=== PATIENT | female | born 1965 | race Caucasian/White ===

== ENCOUNTER → 2016-11-25 | Outpatient (CLI) | payer BC ==
[~2016-11-25] MED LIST: BUPRTAB PO; CETI10CA PO; CHOL1TAB42 PO; LORA-741 PO; PHEN1CAP PO; PYRI100T4 PO; RMCI IV
--- NOTE | 2016-11-25 13:10 | DIAGNOSTIC IMAGING REPORT ---
PAIN. RIGHT ARM UPPER EXTREMITY VENOUS DOPPLER HISTORY: Pain. Edema. R ARM PAIN/SWELLING Right COMPARISON STUDY: None. FINDINGS: The internal jugular vein is patent. There is normal flow within the subclavian vein. There is normal flow and compressibility within the left axillary, basilic, brachial, radial, ulnar, and visualized cephalic veins. IMPRESSION: No DVT within the upper extremity. Electronically signed by: Peewee Grier M.D. 11/25/2016 1:09 PM Dictated Date/Time: 11/25/2016 1:08 PM
== END | disposition home or self-care (01) ==
LOC: C.ULTRBC 12:24
PROVIDERS: ATTEND Internal Medicine Geriatric Medicine
DX: M79.601 Pain in right arm (principal); R60.0 Localized edema

== ENCOUNTER → 2016-11-28 | Outpatient (CLI) | payer BC ==
[2016-11-28 17:07] LABS: RHEUMATOID FACTOR < 10.0 U/mL (0-15); URIC ACID 3.6 mg/dl (2.6-7.2)
[2016-11-28 18:13] LABS: LYME DISEASE AB IGG NEG (NEG); LYME DISEASE AB IGM NEG (NEG)
[2016-12-02 15:44] LABS: CYCLIC CITRULLINATED PEPT IGG <16 UNITS (<20)
== END | disposition home or self-care (01) ==
LOC: C.LAB1850 15:59
PROVIDERS: ATTEND Internal Medicine Geriatric Medicine
DX: M25.50 Pain in unspecified joint (principal); D64.9 Anemia, unspecified; M85.80 Other specified disorders of bone density and structure, unspecified site; R63.5 Abnormal weight gain

== ENCOUNTER → 2016-12-12 | Outpatient (CLI) | payer BC ==
--- NOTE | 2016-12-12 14:51 | DIAGNOSTIC IMAGING REPORT ---
RIGHT WRIST MIN 3 VIEWS ROUTINE CLINICAL HISTORY: Right wrist swelling. COMPARISON: None. DISCUSSION: No acute fractures are visualized. There are no erosive or destructive changes. There is no evidence for soft tissue swelling. IMPRESSION: No acute fractures. No evidence of erosive disease. Electronically signed by: Randy Saeed M.D. 12/12/2016 2:49 PM Dictated Date/Time: 12/12/2016 2:49 PM
[2016-12-12 16:51] LABS: BASO % 0.4 %; BASO ABS # 0.03 K/uL (0-0.2); COMPLETE YES; EOS % 1.3 %; HEMATOCRIT 37.2 % (37-47); IG% 0.1 %; LYMPH % 45.6 %; MEAN CELL VOLUME 85.5 fL (80-100); MEAN CORPUSCULAR HEMOGLOBIN 28.3 pg (25-34); MEAN CORPUSCULAR HGB CONC 33.1 g/dl (32-36); MEAN PLATELET VOLUME 11.2 fL (7.4-10.4); MONO % 6.3 %; NEUT % 46.3 %; PLATELET COUNT 240 K/uL (130-400); RED BLOOD COUNT 4.35 M/uL (4.2-5.4); WHITE BLOOD COUNT 7.67 K/uL (4.8-10.8)
== END | disposition home or self-care (01) ==
LOC: C.RADBC 14:30
PROVIDERS: ATTEND Internal Medicine Geriatric Medicine
DX: R60.0 Localized edema (principal)

== ENCOUNTER → 2017-01-14 | Outpatient (CLI) | payer BC ==
[~2017-01-14] MED LIST changes: -PHEN1CAP PO; +PHEN30CA PO
--- NOTE | 2017-01-14 15:33 | DIAGNOSTIC IMAGING REPORT ---
LEFT FOOT 3 VIEWS CLINICAL HISTORY: Left foot pain and swelling. FINDINGS: 3 views of the left foot are obtained. No prior studies are available for comparison at the time of dictation. The skeletal structures appear osteopenic. No fracture is seen. Mild arthritic change is identified at the first metatarsophalangeal joint. The joint spaces of the foot are otherwise preserved. There are large dorsal and plantar calcaneal enthesophytes. No erosive change is suspected. Mild soft tissue edema is suggested in the foot. IMPRESSION: 1. Mild soft tissue swelling with no acute bony abnormality identified in the left foot. 2. Osteopenia with mild arthritic change and heel spurs as above. Electronically signed by: Aj Grigsby M.D. 01/14/2017 3:31 PM Dictated Date/Time: 01/14/2017 3:30 PM
--- NOTE | 2017-01-14 15:35 | DIAGNOSTIC IMAGING REPORT ---
RIGHT WRIST 4 VIEWS CLINICAL HISTORY: Right arm swelling. FINDINGS: 4 views of the right wrist are compared to study dated 12/12/2016. The skeletal structures are osteopenic. No fracture is seen. The joint spaces of the wrist appear maintained. No erosive disease is identified. The overlying soft tissues are normal as imaged. IMPRESSION: Osteopenia with no acute bony abnormality seen in the right wrist. There has been no significant change from 12/12/2016. Electronically signed by: Aj Grigsby M.D. 01/14/2017 3:32 PM Dictated Date/Time: 01/14/2017 3:32 PM
--- NOTE | 2017-01-14 15:38 | DIAGNOSTIC IMAGING REPORT ---
LEFT HAND MIN 3 VIEWS ROUTINE CLINICAL HISTORY: Arm edema. Pain. COMPARISON: None FINDINGS: Alignment of the left hand is anatomic. No fracture or suspicious lesion is identified. No erosions are identified. Minimal joint space narrowing and osteophytosis is noted within several articulations. Mild radiocarpal joint space narrowing is present. IMPRESSION: 1. No acute fracture. 2. No radiographic evidence of an erosive/inflammatory arthropathy. 3. Mild arthritis within several articulations of the left hand. Electronically signed by: Chago Cueto M.D. 01/14/2017 3:36 PM Dictated Date/Time: 01/14/2017 3:34 PM
--- NOTE | 2017-01-14 15:58 | DIAGNOSTIC IMAGING REPORT ---
RIGHT HAND 3 VIEWS HISTORY: Right hand pain. COMPARISON: None. FINDINGS: There is no fracture or dislocation. Soft tissues are unremarkable. The bones are slightly osteopenic. There appears be a tiny periarticular erosion at the head of the fifth metacarpal. Minimal degenerative changes at the DIP joints. IMPRESSION: 1. Tiny periarticular erosion at the head of the fifth metacarpal. 2. Minimal degenerative changes within the DIP joints. 3. The bones are slightly osteopenic. Electronically signed by: bAel Tripathi M.D. 01/14/2017 3:56 PM Dictated Date/Time: 01/14/2017 3:54 PM
--- NOTE | 2017-01-14 16:00 | DIAGNOSTIC IMAGING REPORT ---
RIGHT FOOT 3 VIEWS HISTORY: FOOT PAIN Right COMPARISON: None. FINDINGS: There is no fracture or dislocation. Soft tissue and bony bunion at the head of the first metatarsal. Mild osteoarthritis at the first MTP joint. No erosions identified. The bones are slightly osteopenic. Small plantar and posterior calcaneal spurs. IMPRESSION: 1. Soft tissue and bony bunion at the head of the first metatarsal. 2. Mild osteoarthritis at the first MTP joint. 3. The bones are slightly osteopenic. 4. No erosions identified. Electronically signed by: Abel Tripathi M.D. 01/14/2017 3:58 PM Dictated Date/Time: 01/14/2017 3:56 PM
[2017-01-14 16:58] LABS: URINE APPEARANCE CLEAR (CLEAR); URINE BILIRUBIN NEG (NEG); URINE COLOR YELLOW; URINE EPITHELIAL CELL AUTO 0-5 /lpf (0-5); URINE NITRITE NEG (NEG); UROBILINOGEN NEG (NEG)
[2017-01-14 17:14] LABS: MANUAL MICROSCOPIC REQUIRED? NO; REVIEW REQ? NO
[2017-01-19 02:28] LABS: ALBUMIN 4.4 G/DL (3.8-4.8); ANTI-CENTROMERE AB <1.0 NEG AI (<1.0 NEG); ANTI-SS-A <1.0 NEG AI (<1.0 NEG); ANTI-SS-B <1.0 NEG AI (<1.0 NEG); DNA ds CRITHIDIA NEGATIVE (NEGATIVE); GAMMA GLOBULIN 0.9 G/DL (0.8-1.7); Sm Antibody <1.0 NEG AI (<1.0 NEG); TOTAL PROTEIN 7.1 G/DL (6.2-8.3)
[2017-01-20 06:39] LABS: ANA TITER > OR = 1:1280 TITER (<1:40)
== END | disposition home or self-care (01) ==
LOC: C.RAD1850 14:55
PROVIDERS: ATTEND Internal Medicine Rheumatology
DX: M79.671 Pain in right foot (principal); M79.672 Pain in left foot; R60.0 Localized edema; M85.831 Other specified disorders of bone density and structure, right forearm; K50.90 Crohn's disease, unspecified, without complications; R89.4 Abnormal immunological findings in specimens from other organs, systems and tissues

== ENCOUNTER → 2017-01-19 | Outpatient (CLI) | payer BC ==
--- NOTE | 2017-01-19 15:21 | DIAGNOSTIC IMAGING REPORT ---
BONE SCAN OF THE FEET; WHOLE-BODY NUCLEAR BONE SCAN CLINICAL HISTORY: Feet pain. History of Crohn's disease. COMPARISON STUDY: Radiographs of the feet dated 01/14/2017. TECHNIQUE: Three hours following the IV administration of 27.2 mCi of technetium 99m MDP, whole body nuclear bone scan was performed in the anterior and posterior projections. Additional bone phase imaging of the feet was performed in multiple obliquities. FINDINGS: There is no abnormal osseous tracer deposition identified typical in appearance for bony metastatic disease. Typically degenerative uptake is identified in the hips, knees, ankles, and feet. The bone phase images of the feet show low level degenerative tracer activity at the ankles and throughout the intertarsal and tarsometatarsal joints. There is also degenerative activity since the right first metatarsophalangeal joint. There is expected excreted activity within the renal collecting system and bladder. IMPRESSION: 1. Foci of typically degenerative activity as detailed above. 2. Degenerative activity is seen within both feet and ankles. Electronically signed by: Aj Grigsby M.D. 01/19/2017 3:19 PM Dictated Date/Time: 01/19/2017 3:13 PM
== END | disposition home or self-care (01) ==
LOC: C.NUCL 11:02
PROVIDERS: ATTEND Internal Medicine Rheumatology
DX: K50.90 Crohn's disease, unspecified, without complications (principal); R89.4 Abnormal immunological findings in specimens from other organs, systems and tissues; M79.671 Pain in right foot; M79.672 Pain in left foot; R60.0 Localized edema

== ENCOUNTER → 2017-01-20 | Outpatient (CLI) | payer BC ==
[2017-01-20 18:17] LABS: HEMATOCRIT 36.3 % (37-47); MEAN CELL VOLUME 86.4 fL (80-100); MEAN CORPUSCULAR HEMOGLOBIN 27.9 pg (25-34); MEAN CORPUSCULAR HGB CONC 32.2 g/dl (32-36); MEAN PLATELET VOLUME 10.2 fL (7.4-10.4); PLATELET COUNT 254 K/uL (130-400); WHITE BLOOD COUNT 7.21 K/uL (4.8-10.8)
--- NOTE | 2017-01-20 18:44 | DIAGNOSTIC IMAGING REPORT ---
TWO VIEW CHEST CLINICAL HISTORY: Upper extremity edema. Weight gain. FINDINGS: PA and lateral chest radiographs are compared to study dated 12/14/2007 and correlated with chest CT dated 08/02/2015.. The cardiomediastinal silhouette is unremarkable. Chronic interstitial thickening is similar to previous. There is no airspace consolidation or pleural effusion. There is no pneumothorax. The skeletal structures appear osteopenic. The bony thorax appears intact. IMPRESSION: No active disease in the chest. Electronically signed by: Aj Grigsby M.D. 01/20/2017 6:42 PM Dictated Date/Time: 01/20/2017 6:41 PM
[2017-01-20 18:46] LABS: BASO ABS # 0.06 K/uL (0-0.2); BASOPHIL % 0.9 %; COMPLETE YES; EOSINOPHIL % 1.8 %; LYMPH ABS # 3.17 K/uL (1.2-3.4); LYMPHOCYTE % 43.9 %; NEUTROPHILS % 51.6 %
[2017-01-20 18:48] LABS: BLOOD UREA NITROGEN 15 mg/dl (7-18); BUN/CREATININE RATIO 13.4 (10-20); C-REACTIVE PROTEIN < 0.29 mg/dl (0-0.29); CALCIUM 8.6 mg/dl (8.5-10.1); CARBON DIOXIDE 27 mmol/L (21-32); CHLORIDE 106 mmol/L (98-107); GLUCOSE 92 mg/dl (70-99); POTASSIUM 3.9 mmol/L (3.5-5.1); SODIUM 140 mmol/L (136-145)
[2017-01-20 19:04] LABS: ALB/GLOB RATIO 1.1 (0.9-2); ALKALINE PHOSPHATASE 125 U/L (45-117); ALT/SGPT 25 U/L (12-78); AST/SGOT 16 U/L (15-37)
== END | disposition home or self-care (01) ==
LOC: C.LAB 17:39
PROVIDERS: ATTEND Registered Nurse
DX: K50.90 Crohn's disease, unspecified, without complications (principal); R60.0 Localized edema; R63.5 Abnormal weight gain

== ENCOUNTER → 2017-03-16 | Outpatient (CLI) | payer BC ==
[~2017-03-16] MED LIST changes: +GADAVIST IV PRN; +GLUCAGON FOR INJ 1 MG VIAL ONE; +NURSING VERBAL MED ORDER ONE
--- NOTE | 2017-03-16 10:33 | DIAGNOSTIC IMAGING REPORT ---
MR ENTEROGRAPHY ABD/PELVIS COMBO HISTORY: Upper abdominal pain. K50.90 Crohn's disease TECHNIQUE: Multiplanar multisequence MRI of the abdomen was performed both before and after the intravenous administration of contrast. 1 mg of glucagon was administered intramuscularly. COMPARISON STUDY: Abdomen and pelvis CT 12/14/2013. FINDINGS: There is evidence for prior right hemicolectomy. A few scattered T2 hyperintense lesions within the liver do not enhance and are consistent with cysts. Dominant lesion within the right hepatic lobe measures 9 mm. The kidneys, adrenal glands, spleen, and gallbladder are unremarkable. No retroperitoneal lymphadenopathy. There is a 3 mm cystic focus within the pancreatic head. Gastric fundus diverticulum. No bowel wall thickening or obstruction. No retroperitoneal lymphadenopathy. No abscess or fistula. The bladder, uterus, and adnexa are unremarkable. IMPRESSION: 1. Prior right hemicolectomy. 2. No bowel wall thickening or obstruction. No evidence for active inflammatory bowel disease. 3. A 3 mm cyst within the pancreatic head. This favors a small side branch intraductal papillary mucinous neoplasm or serous cystadenoma. Electronically signed by: Abel Tripathi M.D. 03/16/2017 10:31 AM Dictated Date/Time: 03/16/2017 10:24 AM
== END | disposition home or self-care (01) ==
LOC: C.MRI 07:41
PROVIDERS: ATTEND Registered Nurse
DX: K50.90 Crohn's disease, unspecified, without complications (principal); Z90.5 Acquired absence of kidney; K86.2 Cyst of pancreas

== ENCOUNTER → 2017-03-20 | Outpatient (CLI) | payer BC ==
[~2017-03-20] MED LIST changes: -GADAVIST IV PRN; -GLUCAGON FOR INJ 1 MG VIAL ONE; -NURSING VERBAL MED ORDER ONE
--- NOTE | 2017-03-20 11:31 | DIAGNOSTIC IMAGING REPORT ---
BILATERAL LOWER EXTREMITY VENOUS DOPPLER HISTORY: Pain. Edema. R60.0 Edema extremities-Bilateral venous dopplers with reflux te COMPARISON STUDY: None. FINDINGS: There is normal compressibility, flow, and augmentation within the bilateral lower extremity deep venous systems. IMPRESSION: No DVT within the right or left lower extremity. No evidence for venous insufficiency Electronically signed by: Peewee Grier M.D. 03/20/2017 11:30 AM Dictated Date/Time: 03/20/2017 11:28 AM
== END | disposition home or self-care (01) ==
LOC: C.ULTR 10:39
PROVIDERS: ATTEND Physician Assistant Medical
DX: R60.0 Localized edema (principal)

== ENCOUNTER → 2017-04-10 | Outpatient (CLI) | payer BC ==
[~2017-04-10] MED LIST changes: +PHEN1CAP PO; -PHEN30CA PO
[2017-04-13 15:08] LABS: QUANTIF TB AG-NIL <0.00 IU/ML; QUANTIFERON NIL 0.04 IU/ML
== END | disposition home or self-care (01) ==
LOC: C.LAB1850 15:34
PROVIDERS: ATTEND Internal Medicine
DX: K50.90 Crohn's disease, unspecified, without complications (principal); R53.83 Other fatigue; R63.5 Abnormal weight gain

== ENCOUNTER → 2017-04-16 | Outpatient (CLI) | payer BC ==
[~2017-04-16] MED LIST changes: -CHOL1TAB42 PO; -PHEN1CAP PO; -PYRI100T4 PO
--- NOTE | 2017-04-16 10:33 | DIAGNOSTIC IMAGING REPORT ---
ABD/PELVIS ORAL CONT ONLY CT DOSE: 982.62 mGycm HISTORY: Pain. Edema. R60.0 Edema extremities better look at lymph nodes in abd shruti and TECHNIQUE: Multiaxial CT images of the abdomen and pelvis were performed following the use of oral contrast. COMPARISON STUDY: 12/14/2013 FINDINGS: Lung bases remain clear. Liver continues to show numerous very small hyperdense nodules. Within limitations of an unenhanced scan these appear similar as compared to the prior study. Kidneys negative for calcification or hydronephrosis. Several small nodes in the region of the celiac axis and peripancreatic region are stable. Several small nodes in the mesentery also are stable. There is no evidence for new interval or progressive inocencio pathology. Bowel pattern within the abdomen and pelvis is nonobstructive. There is suggestion of mild wall edema of the sigmoid suggesting mild nonspecific colitis. No evidence for abscess collection or obstruction. Bladder is midline. No significant angle adenopathy. Mild degenerative change of the osseous structures throughout. IMPRESSION: 1. Mild nonspecific sigmoid colitis. 2. No evidence for abscess collection or obstruction. 3. Several indeterminate nodes of the abdomen unchanged compared to a prior study of 2013. 3. Micronodularity of the liver also unchanged . The above report was generated using voice recognition software. It may contain grammatical, syntax or spelling errors. Electronically signed by: Peewee Grier M.D. 04/16/2017 10:31 AM Dictated Date/Time: 04/16/2017 10:26 AM
== END | disposition home or self-care (01) ==
LOC: C.CTS 09:43
PROVIDERS: ATTEND Physician Assistant Medical
DX: R60.0 Localized edema (principal); K52.9 Noninfective gastroenteritis and colitis, unspecified

== ENCOUNTER → 2017-05-28 | Outpatient (CLI) | payer BC ==
[~2017-05-28] MED LIST changes: +CHOL1TAB42 PO; +PHEN1CAP PO; +PYRI100T4 PO
== END | disposition home or self-care (01) ==
LOC: C.LAB 13:58
PROVIDERS: ATTEND Internal Medicine Rheumatology
DX: K50.90 Crohn's disease, unspecified, without complications (principal); R89.4 Abnormal immunological findings in specimens from other organs, systems and tissues; E55.9 Vitamin D deficiency, unspecified; M35.1 Other overlap syndromes

== ENCOUNTER → 2017-08-12 | Outpatient (CLI) | payer BC ==
[~2017-08-12] MED LIST changes: -BUPRTAB PO; -PHEN1CAP PO; +PHEN30CA PO
[2017-08-12 18:06] LABS: CHOLESTEROL/HDL RATIO 4.6
[2017-08-19 02:40] LABS: ANTI-CENTROMERE AB <1.0 NEG AI (<1.0 NEG); ANTI-SS-A <1.0 NEG AI (<1.0 NEG); ANTI-SS-B <1.0 NEG AI (<1.0 NEG); DNA ds CRITHIDIA NEGATIVE (NEGATIVE); Sm Antibody <1.0 NEG AI (<1.0 NEG)
== END | disposition home or self-care (01) ==
LOC: C.LAB1850 16:13
PROVIDERS: ATTEND Physician Assistant Medical
DX: Z00.00 Encounter for general adult medical examination without abnormal findings (principal); M35.1 Other overlap syndromes

== ENCOUNTER → 2018-05-28 | Day surgery (SDC) | payer BC ==
[2018-05-25 13:05] VITALS: Ht 162.6 cm; Wt 86.4 kg
[~2018-05-28] VITALS: Ht 162.6 cm; Wt 86.4 kg
[~2018-05-28] MED LIST changes: +CYAN100020 PO; +LIDOCAINE HCL 2% 2 ML VIAL (20MG/ML) ONE; -LORA-741 PO; +MIDAZOLAM HCL 1 MG/ML 2ML VIAL ONE; +ONDANSETRON INJ 2 MG/ML 2 ML VIAL ONE; +PROPOFOL IV EMULSION 10 MG/ML 20 ML VIAL ONE; -PYRI100T4 PO; +SODIUM CHLORIDE 0.9% 500ML 500 ML IV ONE
--- NOTE | 2018-05-28 08:38 | Endo History and Physical ---
History & Physical Date of Service: May 28, 2018. Chief Complaint: Crohn's Disease Referring Physician: Mitch Paredes History of Present Illness 53 yo CF who presents for colonoscopy secondary to Crohn's disease. Past Medical History Gastrointestinal Disorder, Anxiety, Depression Past Surgical History Hx Cardiac Surgery: No Hx Internal Defibrillator: No Hx Pacemaker: No Hx Abdominal Surgery: Yes (, BOWEL RESECTION) Hx of Implantable Prosthesis: No Hx Post-Op Nausea and Vomiting: No Hx Cancer Surgery: No Hx Thoracic Surgery: No Hx Orthopedic: No Hx Urinary Tract Surgery: No Family History None Social History Smoking Status: Former Smoker Hx Substance Use: No Hx Alcohol Use: Yes (OCCASIONAL) Allergies Coded Allergies: Penicillins (Verified Allergy, Severe, RASH(?), 05/28/18) Iodinated Diagnostic Agents (Verified Allergy, Unknown, HIVES, RASH, WHEEZING, 05/28/18) Current Medications Reported Home Medications Medications Dose Route/Sig Max Daily Dose Days Date Category Vitamin B12 (Cyanocobalamin) 1,000 Mcg Tab 2 Tabs PO DAILY 05/25/18 Reported Phentermine Hcl 30 Mg Cap 1 Cap PO QAM 07/06/17 Reported Vitamin D (Cholecalciferol) 5,000 Unit Tab 1 Tab PO DAILY 07/06/17 Reported Zyrtec Allergy (Cetirizine Hcl) 10 Mg Cap 1 Cap PO QAM PRN 10/30/15 Reported Remicade (Infliximab) 100 Mg/10 Ml Inj 1 Dose IV Q6WK 10/30/15 Reported Vital Signs Weight (Kilograms): 86.36 Height (Feet): 5 Height (Inches): 4 Physical Exam General Appearance: WD/WN, no apparent distress Respiratory/Chest: Auscultation: breath sounds normal Cardiovascular: Heart Auscultation: RRR Abdomen: Bowel Sounds: normal Inspection & Palpation: soft, non-distended, no tenderness, guarding & rebound Assessment and Plan Assessment: 53 yo CF who presents for colonoscopy secondary to Crohn's disease. Plan: Proceed with colonoscopy.
--- NOTE | 2018-05-28 09:35 | Discharge Instructions ---
Endoscopy Patient Instructions Date / Procedure(s) Performed May 28, 2018. Colonoscopy Allergy Information Coded Allergies: Penicillins (Verified Allergy, Severe, RASH(?), 05/28/18) Iodinated Diagnostic Agents (Verified Allergy, Unknown, HIVES, RASH, WHEEZING, 05/28/18) Discharge Date / Findings May 28, 2018. Random colon biopsies History of partial colectomy with normal appearing anastomosis Medication Instructions OK to resume all medications today as prescribed Reported Home Medications Medications Dose Route/Sig Max Daily Dose Days Date Category Vitamin B12 (Cyanocobalamin) 1,000 Mcg Tab 2 Tabs PO DAILY 05/25/18 Reported Phentermine Hcl 30 Mg Cap 1 Cap PO QAM 07/06/17 Reported Vitamin D (Cholecalciferol) 5,000 Unit Tab 1 Tab PO DAILY 07/06/17 Reported Zyrtec Allergy (Cetirizine Hcl) 10 Mg Cap 1 Cap PO QAM PRN 10/30/15 Reported Remicade (Infliximab) 100 Mg/10 Ml Inj 1 Dose IV Q6WK 10/30/15 Reported Provider Instructions Activity Restrictions - No exercising or heavy lifting for 24 hours. - Do not drink alcohol the day of the procedure. - Do not drive a car or operate machinery until the day after the procedure. - Do not make any important decisions or sign important papers in 24 hours after the procedure. Following Day: - Return to full activity which may include returning to work/school. Diet Start your diet with liquids and light foods (jello, soup, juice, toast). Then eat your usual diet if not nauseated. Treatment For Common After Affects For mild abdominal pain, bloating, or excessive gas: - Rest - Eat lightly - Lie on right side Follow-Up Information Follow-up with Dr. Mitch Alva as scheduled Anesthesia Information What You Should Know You have had a procedure that required some medicine to reduce anxiety and discomfort. This treatment is called moderate sedation. After receiving the treatment, you may be sleepy, but you will be able to breathe on your own. The effects of the treatment may last for several hours. Follow these instructions along with Activity/Diet recommendations noted above: * Do NOT do anything where dizziness or clumsiness would be dangerous. * Rest quietly at home today, then you can be up and about tomorrow. * Have a responsible person stay with you the rest of today. * You may have had an I.V. today. If so, you may take the dressing off later today. Recommendations Call your doctor if: * Trouble breathing * Continuous vomiting for more than 24 hours * Temperature above 101 degrees * Severe abdominal pain or bloating * Pain not relieved by pain medicine ordered * There is increased drainage or redness from any incision * A large amount of rectal bleeding greater than 2-3 tablespoons. (If you had a polyp/s removed or have hemorrhoids, a small amount of blood - from the rectum is to be expected.) * You have any unanswered questions or concerns. IN THE EVENT OF A SERIOUS EMERGENCY, GO TO THE NEAREST EMERGENCY ROOM Your discharge instructions were prepared by provider Chucky Coelho. Patient Instructions Signature Page Kathleen Wright Patient (or Guardian) Signature/Date: I have read and understand the instructions given to me by my caregivers. Caregiver/RN/Doctor Signature/Date: The above-named patient and/or guardian has received patient instructions on this date. + Original Patient Signature Page (only) stays with chart. Please make copy for patient.
--- NOTE | 2018-05-28 09:44 | GI REPORT ---
Patient Name: Kathleen Wright Procedure Date: 05/28/2018 8:49 AM Date of : 1965 Admit Type: Outpatient Age: 53 Gender: Female Attending MD: Chucky Coelho DO Procedure: Colonoscopy Providers: Chucky Coelho DO Referring MD: Mitch Paredes Md Indications: Follow-up of Crohn's disease of the small bowel Medicines: Monitored Anesthesia Care Complications: No immediate complications. Estimated Blood Loss: Estimated blood loss: none. Procedure: Pre-Anesthesia Assessment: - Prior to the procedure, a History and Physical was performed, and patient medications and allergies were reviewed. The patient's tolerance of previous anesthesia was also reviewed. The risks and benefits of the procedure and the sedation options and risks were discussed with the patient. All questions were answered, and informed consent was obtained. Prior Anticoagulants: The patient has taken no previous anticoagulant or antiplatelet agents. ASA Grade Assessment: II - A patient with mild systemic disease. After reviewing the risks and benefits, the patient was deemed in satisfactory condition to undergo the procedure. After I obtained informed consent, the scope was passed under direct vision. Throughout the procedure, the patient's blood pressure, pulse, and oxygen saturations were monitored continuously. The scope was introduced through the anus and advanced to the terminal ileum. The colonoscopy was performed without difficulty. The patient tolerated the procedure well. The quality of the bowel preparation was good. The terminal ileum, ileocecal valve, appendiceal orifice, and rectum were photographed. Findings: The perianal and digital rectal examinations were normal. There was evidence of a prior end-to-side ileo-colonic anastomosis in the ascending colon. This was patent and was characterized by healthy appearing mucosa. The anastomosis was not traversed. Several random biopsies were obtained with cold forceps for histology in the entire colon. Impression: - Patent end-to-side ileo-colonic anastomosis, characterized by healthy appearing mucosa. - Several random biopsies were obtained in the entire colon. Recommendation: - Resume previous diet. - Continue present medications. - Repeat colonoscopy for surveillance based on pathology results. - Return to primary care physician as previously scheduled. Chucky Coelho DO 05/28/2018 9:44:11 AM This report has been signed electronically. Note Initiated On: 05/28/2018 8:49 AM Number of Addenda: 0 I attest to the content of the Intraoperative Record and orders documented therein, exceptions below {[id number]}
--- NOTE | 2018-05-28 09:52 | Anesthesiology Progress Note ---
Anesthesia Post Op Note Date & Time May 28, 2018 at 09:52 Vital Signs Pain Intensity: 0 Vital Signs Past 12 Hours Date Time Temp Pulse Resp B/P (MAP) Pulse Ox O2 Delivery O2 Flow Rate FiO2 05/28/18 09:50 75 18 129/82 (98) 99 Room Air 05/28/18 09:34 36.0 79 18 127/83 (98) 99 Room Air 05/28/18 08:42 36.4 92 18 128/85 (99) 98 Room Air Notes Mental Status: alert / awake / arousable, participated in evaluation Pt Amnestic to Procedure: Yes Nausea / Vomiting: adequately controlled Pain: adequately controlled Airway Patency, RR, SpO2: stable & adequate BP & HR: stable & adequate Hydration State: stable & adequate Anesthetic Complications: no major complications apparent
[2018-05-28 10:03] VITALS: BP 132/86; PULSE 76; O2SAT 99
== END | disposition home or self-care (01) ==
LOC: C.GI 08:17
PROVIDERS: ATTEND Internal Medicine
DX: K50.90 Crohn's disease, unspecified, without complications (principal); Z98.0 Intestinal bypass and anastomosis status; K21.9 Gastro-esophageal reflux disease without esophagitis; Z87.891 Personal history of nicotine dependence; Z88.0 Allergy status to penicillin; Z91.041 Radiographic dye allergy status

== ENCOUNTER 2023-04-01 15:21 | Inpatient (IN) ==
[2023-04-01 17:15] LABS: Hematocrit (blood only) 25.4 % (37.0-47.0); Mean Corpuscular Hemoglobin 16.3 pg (25.0-34.0); Mean Corpuscular Hgb Conc 27.6 g/dL (32.0-36.0); Mean Corpuscular Volume 59.2 fL (80.0-100.0); Mean Platelet Volume 9.9 fL (9.4-12.4); Platelet Count 479 K/uL (130-400); RDW Coefficient of Variation 20.8 % (11.5-14.5); RDW Standard Deviation 41.6 fL (36.4-46.3); Red Blood Count 4.29 M/uL (4.20-5.40); White Blood Count 10.09 K/ul (4.8-10.8)
[2023-04-01 17:20] LABS: Albumin Globulin Ratio 1.3 (0.9-2); Albumin Level 4.2 gm/dl (3.4-5.0); BUN Creatinine Ratio 6.3 (10-20); Bilirubin,Total 0.3 mg/dl (0.2-1.0); Est GFR (African American) 76.5 ml/min; Globulin 3.3 gm/dl (2.5-4.0); Potassium 2.9 mmol/L (3.5-5.1); Total Protein 7.5 gm/dl (6.0-8.3)
[2023-04-01] MEDS ORDERED: SODIUM CHLORIDE 0.9% 250 ML IV PRN (17:26)
[2023-04-01 17:35] LABS: Anisocytosis Present; Basophils # (auto) 0.04 K/uL (0-0.2); Basophils % (auto) 0.4 %; Eosinophils # (auto) 0.11 K/uL (0-0.50); Eosinophils % (auto) 1.1 %; Hypochromasia Present; Immature Granulocytes # (auto) 0.02 K/uL (0.01-0.20); Immature Granulocytes % (auto) 0.2 %; Lymphocytes # (auto) 2.73 K/uL (1.2-3.4); Lymphocytes % (auto) 27.1 %; Microcytosis Present; Monocytes # (auto) 0.79 K/uL (0.11-0.59); Monocytes % (auto) 7.8 %; Neutrophils % (auto) 63.4 %; Polychromasia 1+
--- NOTE | 2023-04-01 17:47 | Emergency Department Note ---
Impression & Plan Anemia, Diarrhea, HTN (hypertension) ED Provider Note NAME: ALEJANDRO HOLLOWAY AGE: 57 SEX: F : 1965 ARRIVES VIA: Walk-In INFORMANT: Patient ED PROVIDER(S): Vinay Martinez DO CHIEF COMPLAINT: low hemiglobin HPI: Patient is a 57-year-old female with a past medical history of anemia, anxiety, Crohn's who presents to the ER for diarrhea which has been present for the past month. It worsened over the past 1.5 weeks. She is going about 10 times a day. She has not noticed any blood in the stool. Was seen and had blood work done as an outpatient as she is feeling weak and was referred in with a hemoglobin of 6.5. Patient does follow with Dr. Coelho. She is on Remicade for ulcerative colitis. She denies any headache or change in vision. No chest pain or shortness of breath. No belly pain. No dysuria, urgency, or frequency. No other exacerbating remitting factors PAST MEDICAL HISTORY:See Below PAST SURGICAL HISTORY:See Below FAMILY HISTORY:See Below SOCIAL HISTORY:See Below HOME MEDICATIONS:See Below ALLERGIES:See Below VITALS:See Below PHYSICAL EXAMINATION: GENERAL: Sitting up in bed, alert, well appearing, well nourished, no distress, non-toxic EYE EXAM: normal conjunctiva. OROPHARYNX: no exudate, no erythema, lips, buccal mucosa, and tongue normal and mucous membranes are moist NECK: supple, no nuchal rigidity, no adenopathy, non-tender LUNGS: Clear to auscultation. Normal chest wall mechanics HEART: no murmurs, S1 normal and S2 normal ABDOMEN: abdomen soft, non-tender, normo-active bowel sounds, no masses, no rebound or guarding. RECTAL: Declined UPPER EXTREMITIES: upper extremities are grossly normal. LOWER EXTREMITIES: No pitting edema. NEURO EXAM: Normal sensorium, cranial nerves II-XII grossly intact, normal speech, no gross weakness of arms, no gross weakness of legs. MEDICAL DECISION MAKING: Patient is an 57-year-old female who presents ER for above-stated complaint. IV was established blood work was obtained. Labs show no significant leukocytosis. Mild anemia at 7 with the one earlier performed today at 6.5. Previous hemoglobin was 11-12. INR unremarkable. BMP with mild hypokalemia 2.9. LFTs bilirubin was unremarkable. Stool culture was obtained and was negative. C. difficile was negative. Stool was negative for blood. She has no belly pain. She was given IV fluids. She was typed and crossed given 2 units PRBCs. She was updated bedside discussed case with the hospitalist for further evaluation management treatment. Triage Nursing notes reviewed. Limited review of prior medical records performed Vital Signs: reviewed and remarkable for no significant abnormalities Differential diagnosis: Differential diagnosis includes etiologies such as diverticulitis, diverticulosis, AVM, coagulopathy, colitis, inflammatory bowel disease, malignancy, Kim-Gan tear, esophagitis, peptic ulcer disease, variceal bleed, gastritis, epistaxis, fissure, hemorrhoids, as well as others were entertained. ER treatment provided: See below Diagnostics interpreted by me include EKG and cardiac monitoring as listed below: -Cardiac Monitoring: An order was placed for continuous cardiac monitoring. The monitor shows a rate of 92 with sinus rhythm. -ECG: none -Laboratory studies:Interpreted by me as stated above in MDM and shown below. Imaging studies: Xrays: As interpreted by me:none CTs show: none Consultation(s): As described in MDM Procedures:none Critical Care: I have personally spent 31 minutes of critical care time in the direct management of this patient. This includes bedside care, interpretation of diagnostic studies, and testing, discussion with consultants, patient, and family members, and other required patient management activities. This 31 minutes is in excess of all separately billable procedures. Past Med/Surg History Medical History Allergic rhinitis inhaler prn Anxiety disorder Arthralgia of multiple sites Crohn's disease Depression Dermatitis on doxycycline daily Edema occasionally Hepatic cyst unaware Mixed connective tissue disease Obesity Osteopenia Pancreatic cyst unaware Pulmonary nodules unaware Seasonal allergies Vitamin B12 deficiency Vitamin D deficiency Surgical History History of bowel resection (~1993) [facility] [place] History of breast biopsy benign History of History of colonoscopy History of tonsillectomy History of wisdom tooth extraction Family History Mother Ovarian cancer Leukemia Breast cancer Uterine cancer Hypertension Father Congestive heart failure Stroke Uncle Myocardial infarction Other No family history of adverse response to anesthesia Denies family history of Prostate cancer Diabetes Lung cancer Colorectal cancer Social History Smoking Status: Former smoker Tobacco Type: Cigarettes Second Hand Exposure: No; Do You Dip or Chew Tobacco: No; Hx Alcohol Use: Yes Alcohol type: beer Alcohol Intake Frequency: Monthly or Less Hx Substance Use: No Preferred Language: Estonian Communication Ability: Effective Visual Impairment: Limited Hearing Ability: Normal Guide Excursion Required: No Beliefs That Will Affect Care: None marital status: Current Living Situation: Spouse Current Living Situation Comment: home with current occupational status: employed How many Children do You have: 1 Other Information That Helps Us Care for You: No Feels Safe at Home: Yes Safety Concerns: Feels Safe At This Time Childhood Exposure to Second-Hand Smoke: Yes caffeine: Yes Dental Care, Regularly: Yes Physical Activity Frequency: Daily Seatbelt Use: always Sunscreen Use: Yes Assistive Devices: Glasses Allergies Allergies Allergy/AdvReac Type Severity Reaction Status Date / Time Iodinated Contrast Media Allergy Intermediate HIVES, Verified 03/24/23 10:35 RASH, WHEEZING Penicillins Allergy Mild RASH(?) Verified 03/24/23 10:35 Home Meds Home Medications Medication Instructions Recorded Confirmed cetirizine 10 mg capsule (Zyrtec) 10 mg PO DAILY PRN Allergy Symptoms 07/11/19 04/01/23 phentermine 37.5 mg tablet 37.5 mg PO QAM 07/11/19 04/01/23 infliximab 100 mg intravenous See Rx Instructions IV .COMPLEX 08/09/19 04/01/23 solution (Remicade) cholecalciferol (vitamin D3) 125 5,000 units PO QAM 07/24/20 04/01/23 mcg (5,000 unit) capsule potassium chloride 10 mEq 10 meq PO .COMPLEX PRN when taking 03/12/21 04/01/23 capsule,extended release hctz albuterol sulfate 90 mcg/actuation 2 puff inhalation Q4 PRN Shortness 04/01/23 04/01/23 aerosol inhaler (ProAir HFA) Of Breath Or Wheezing doxycycline hyclate 100 mg tablet 100 mg PO QAM 04/01/23 04/01/23 Previous Rx's Medication Instructions Recorded hydrochlorothiazide 25 mg tablet 25 mg PO DAILY PRN edema #30 tabs 09/23/19 ketoconazole 2 % topical cream 1 applic topical BID #15 grams 09/18/21 cyanocobalamin (vitamin B-12) 1,000 mcg subcut .once monthly #1 08/21/22 1,000 mcg/mL injection solution mL Results & Data (ED) Vital Signs Vital Signs - 24 hr 04/01/23 15:25 04/01/23 16:41 04/01/23 16:42 Temperature 36.9 C Temperature Source Oral Pulse Rate 111 H 99 H Pulse Rate [Right Finger] 100 H Pulse Rhythm [Right Finger] Regular Pulse Strength [Right Finger] Normal Respiratory Rate 22 18 Respiratory Effort / Characteristics Non-Labored Respiratory Depth Normal Respiratory Pattern Regular Blood Pressure 151/85 H Blood Pressure [Right Arm] 152/85 H Blood Pressure Mean 107 Blood Pressure Mean [Right Arm] 107 Blood Pressure Position [Right Arm] Lying Pulse Oximetry 100 99 Oxygen Delivery Method Room Air Room Air Sepsis Recent Fever Within 48 Hours No Sepsis New/Unexplained Change in Mental Status N/A Sepsis Action Taken by Nursing No Action Required Laboratory Data 04/01/23 16:28 04/01/23 16:28 Lab Results 04/01/23 04/01/23 04/01/23 Range/Units 16:28 16:28 16:28 WBC 10.09 (4.8-10.8) K/ul RBC 4.29 (4.20-5.40) M/uL Hgb 7.0 L (12.0-16.0) g/dl Hct 25.4 L (37.0-47.0) % MCV 59.2 L (80.0-100.0) fL MCH 16.3 L (25.0-34.0) pg MCHC 27.6 L (32.0-36.0) g/dL RDW Std Deviation 41.6 (36.4-46.3) fL RDW Coeff of Owen 20.8 H (11.5-14.5) % Plt Count 479 H (130-400) K/uL MPV 9.9 (9.4-12.4) fL Immature Gran % (Auto) 0.2 % Neut % (Auto) 63.4 % Lymph % (Auto) 27.1 % [place] % (Auto) 7.8 % Eos % (Auto) 1.1 % Baso % (Auto) 0.4 % Reticulocyte % (Auto) 1.7 (0.5-2.0) % Neut # (Auto) 6.40 (1.40-6.50) K/uL Lymph # (Auto) 2.73 (1.2-3.4) K/uL [place] # (Auto) 0.79 H (0.11-0.59) K/uL Eos # (Auto) 0.11 (0-0.50) K/uL Baso # (Auto) 0.04 (0-0.2) K/uL Reticulocyte # 0.07 (0.02-0.10) 10^6/uL Immature Gran # (Auto) 0.02 (0.01-0.20) K/uL Polychromasia 1+ Hypochromasia Present Anisocytosis Present Microcytosis Present PT (9.0-12.0) Seconds INR (0.9-1.1) APTT (21.0-31.0) Seconds PTT Ratio Sodium 138 (136-145) mmol/L Potassium 2.9 L (3.5-5.1) mmol/L Chloride 108 H (98-107) mmol/L Carbon Dioxide 24 (21-32) mmol/L Anion Gap 6 (3-11) BUN 6 (6-23) mg/dl Creatinine 0.95 (0.6-1.2) mg/dl Est Cr Clr Drug Dosing 68.0 ml/min Est GFR ( Amer) 76.5 ml/min Est GFR (Non-Af Amer) 66.0 ml/min BUN/Creatinine Ratio 6.3 L (10-20) Glucose 92 (70-99(Fasting)) mg/dl Calcium 9.0 (8.6-10.3) mg/dl Magnesium 1.9 (1.7-2.4) mg/dl Iron 13 L (35-150) mcg/dl Unsaturated IBC 527 H (155-355) mcg/dl Transferrin 390 H (200-360) mg/dl Ferritin 6.9 L (8-388) ng/ml Total Bilirubin 0.3 (0.2-1.0) mg/dl AST 15 (13-39) U/L ALT 9 (7-52) U/L Alkaline Phosphatase 110 H (34-104) U/L Total Protein 7.5 (6.0-8.3) gm/dl Albumin 4.2 (3.4-5.0) gm/dl Globulin 3.3 (2.5-4.0) gm/dl Albumin/Globulin Ratio 1.3 (0.9-2) Lipase 17 (11-82) U/L Vitamin B12 (180-914) pg/ml Folate (>5.38) ng/ml SARS-CoV-2, RNA, NAAT (NEGATIVE) Blood Type O Positive Blood Type Recheck Antibody Screen NEGATIVE Crossmatch See Detail 04/01/23 04/01/23 04/01/23 Range/Units 16:28 16:28 17:43 WBC (4.8-10.8) K/ul RBC (4.20-5.40) M/uL Hgb (12.0-16.0) g/dl Hct (37.0-47.0) % MCV (80.0-100.0) fL MCH (25.0-34.0) pg MCHC (32.0-36.0) g/dL RDW Std Deviation (36.4-46.3) fL RDW Coeff of Owen (11.5-14.5) % Plt Count (130-400) K/uL MPV (9.4-12.4) fL Immature Gran % (Auto) % Neut % (Auto) % Lymph % (Auto) % [place] % (Auto) % Eos % (Auto) % Baso % (Auto) % Reticulocyte % (Auto) (0.5-2.0) % Neut # (Auto) (1.40-6.50) K/uL Lymph # (Auto) (1.2-3.4) K/uL [place] # (Auto) (0.11-0.59) K/uL Eos # (Auto) (0-0.50) K/uL Baso # (Auto) (0-0.2) K/uL Reticulocyte # (0.02-0.10) 10^6/uL Immature Gran # (Auto) (0.01-0.20) K/uL Polychromasia Hypochromasia Anisocytosis Microcytosis PT 10.8 (9.0-12.0) Seconds INR 1.0 (0.9-1.1) APTT 25.4 (21.0-31.0) Seconds PTT Ratio 0.9 Sodium (136-145) mmol/L Potassium (3.5-5.1) mmol/L Chloride (98-107) mmol/L Carbon Dioxide (21-32) mmol/L Anion Gap (3-11) BUN (6-23) mg/dl Creatinine (0.6-1.2) mg/dl Est Cr Clr Drug Dosing ml/min Est GFR ( Amer) ml/min Est GFR (Non-Af Amer) ml/min BUN/Creatinine Ratio (10-20) Glucose (70-99(Fasting)) mg/dl Calcium (8.6-10.3) mg/dl Magnesium (1.7-2.4) mg/dl Iron (35-150) mcg/dl Unsaturated IBC (155-355) mcg/dl Transferrin (200-360) mg/dl Ferritin (8-388) ng/ml Total Bilirubin (0.2-1.0) mg/dl AST (13-39) U/L ALT (7-52) U/L Alkaline Phosphatase (34-104) U/L Total Protein (6.0-8.3) gm/dl Albumin (3.4-5.0) gm/dl Globulin (2.5-4.0) gm/dl Albumin/Globulin Ratio (0.9-2) Lipase (11-82) U/L Vitamin B12 > 1500 H (180-914) pg/ml Folate 16.87 (>5.38) ng/ml SARS-CoV-2, RNA, NAAT NEGATIVE (NEGATIVE) Blood Type Blood Type Recheck Antibody Screen Crossmatch 04/01/23 Range/Units 18:01 WBC (4.8-10.8) K/ul RBC (4.20-5.40) M/uL Hgb (12.0-16.0) g/dl Hct (37.0-47.0) % MCV (80.0-100.0) fL MCH (25.0-34.0) pg MCHC (32.0-36.0) g/dL RDW Std Deviation (36.4-46.3) fL RDW Coeff of Owen (11.5-14.5) % Plt Count (130-400) K/uL MPV (9.4-12.4) fL Immature Gran % (Auto) % Neut % (Auto) % Lymph % (Auto) % [place] % (Auto) % Eos % (Auto) % Baso % (Auto) % Reticulocyte % (Auto) (0.5-2.0) % Neut # (Auto) (1.40-6.50) K/uL Lymph # (Auto) (1.2-3.4) K/uL [place] # (Auto) (0.11-0.59) K/uL Eos # (Auto) (0-0.50) K/uL Baso # (Auto) (0-0.2) K/uL Reticulocyte # (0.02-0.10) 10^6/uL Immature Gran # (Auto) (0.01-0.20) K/uL Polychromasia Hypochromasia Anisocytosis Microcytosis PT (9.0-12.0) Seconds INR (0.9-1.1) APTT (21.0-31.0) Seconds PTT Ratio Sodium (136-145) mmol/L Potassium (3.5-5.1) mmol/L Chloride (98-107) mmol/L Carbon Dioxide (21-32) mmol/L Anion Gap (3-11) BUN (6-23) mg/dl Creatinine (0.6-1.2) mg/dl Est Cr Clr Drug Dosing ml/min Est GFR ( Amer) ml/min Est GFR (Non-Af Amer) ml/min BUN/Creatinine Ratio (10-20) Glucose (70-99(Fasting)) mg/dl Calcium (8.6-10.3) mg/dl Magnesium (1.7-2.4) mg/dl Iron (35-150) mcg/dl Unsaturated IBC (155-355) mcg/dl Transferrin (200-360) mg/dl Ferritin (8-388) ng/ml Total Bilirubin (0.2-1.0) mg/dl AST (13-39) U/L ALT (7-52) U/L Alkaline Phosphatase (34-104) U/L Total Protein (6.0-8.3) gm/dl Albumin (3.4-5.0) gm/dl Globulin (2.5-4.0) gm/dl Albumin/Globulin Ratio (0.9-2) Lipase (11-82) U/L Vitamin B12 (180-914) pg/ml Folate (>5.38) ng/ml SARS-CoV-2, RNA, NAAT (NEGATIVE) Blood Type Blood Type Recheck O Positive Antibody Screen Crossmatch Administered Medications Pantoprazole Sodium 40 mg/ (Dextrose) 100 mls @ 20 mls/hr IV Q5H HAZEL Stop: 05/01/23 19:17 Last Admin: 04/01/23 21:21 Dose: 8 mg/hr, 20 mls/hr Documented By: KALYAN Discontinued Medications Potassium Chloride (K [place] / Wtr) 10 meq in 100 mls @ 100 mls/hr IV Q1H HAZEL Stop: 04/01/23 19:29 Last Infusion: 04/01/23 20:59 Dose: 0 mls/hr Documented By: Admin: 04/01/23 19:19 Dose: 100 mls/hr Documented By: Infusion: 04/01/23 19:18 Dose: 0 mls/hr Documented By: Admin: 04/01/23 18:12 Dose: 100 mls/hr Documented By: TONY Pantoprazole Sodium 80 mg/ (Dextrose) 120 mls @ 400 mls/hr IV NOW ONE Stop: 04/01/23 19:17 Last Infusion: 04/01/23 21:30 Dose: 0 mls/hr Documented By: Admin: 04/01/23 21:04 Dose: 400 mls/hr Documented By: KALYAN Discharge Plan Visit Data Chief Complaint: Abnormal Labs/Diagnostic Testing Stated Complaint: ABNORMAL LAB WORK,DOC REF ED Provider: Vinay Martinez Discharge Problem: Anemia, Diarrhea, HTN (hypertension) Discharge Instructions Interventions: ED Discharge Assessment Last Done: 04/01/23 20:20
--- NOTE | 2023-04-01 18:06 | History & Physical Report ---
Date of Service April 01, 2023 Assessment & Plan (1) Anemia: Plan: -Admit to med-tele -Currently stable -Has been having progressive diarrhea over the past month after having a food bolus -Noted to have outpatient Hgb of 6.5 today and sent to the ED for further evalu ation and treatment -Patient denies bloody BM and melena, fecal occult initially negative but nursing staff states "looked more positive" on further review -BUN WNL, iron studies are low, but does not appear to be low enough to explain her MCV in the 50's -ED consented for blood, ordered 2 units PRBC -Will add on reticulocyte count, LDH,peripheral smear, PT/INR, and aptt for further evaluation -Will start Protonix bolus and drip in case she is having an occult GI bleed -GI consult placed, will keep on clears until midnight then NPO except meds in preparation for possible EGD -Will monitor post-transfusion CBC then trend q6h following -BL SCD's for DVT PPX, hold chemical PPX in case of possible bleed -AM CBC, CMP, Mag, PT/INR (2) Hypokalemia: Plan: -Likely a combination of chronically low levels due to poor absorption, unable to take PO potassium due to difficulty swallowing, and recurrent diarrhea -Mag level at 1.9 -No acute ECG changes -Was initially ordered 2 bags of 10 meq IV KCL, will hold PO forms of KCL at this time as she cannot swallow the tabs and the powdered forms will likely cau se excessive GI upset -Will repeat a potassium level at midnight with first repeat CBC, then will continue to replete with IV for now -Continue to monitor on tele (3) Diarrhea: Plan: -Cannot rule out infectious etiology at this time, stool studies are in process -Likely at least partially due to restricted diet since her food bolus a month ago -Hold anti-diarrheals until infectious etiology is ruled out -IV fluids as needed, GI consult (4) Crohn's disease: Plan: -Has been stable on q6w Remicade infusions for 20 + years -Follow's with Dr. Coelho -Will hold any CT imaging at this time as she is without abd discomfort -Follow GI recs (5) Difficulty swallowing: Plan: -Will likely need EGD prior to discharge -Will keep on clears until midnight then NPO in case of EGD tomorrow Plan The patient was discussed with Dr. Jacob at the time of the admission History of Present Illness Chief Complaint: Abnormal outpatient labs; Hgb of 6.5 Primary Care Provider: IDANIA PCP Kathleen is a 57 year old female with a PMH significant for chrons ileitis s/p resection (on Q6W Remicade infusions), anemia, anxiety, depression, neuro- dermatitis, and chronic LE edema who presented to the [facility] ED on 04/01 at the recommendation of her PCP due to a Hgb of 6.5 on outpatient labs. In the ED the patient was initially tachycardic at 111 but vitals were otherwise stable. Labs in the ED were significant for a Hgb of 7.0, Hct of 25, MCV of 59, MCHC of 27, Platelet count of 479, potassium of 2.9, alk phos of 110. Prior to admission the patient was consented for blood and ordered 2 units of PRBC's. At the time of the exam the patient was sitting in bed in no acute distress. She states that she has had Chron's for 40 years, had approximately 3 feet of ileum removed approximately 20 years ago, and has been on q6w Remicade for years without complication. She was in the [facility] ED on 03/04 due to a food bolus. She was given sublingual ativan and nitroglycerine, as-well-as IV glucagon and was discharged home on a soft diet. She was initially early this month but it was not scheduled with Dr. Coelho and had to be rescheduled for mid April. Since her ED discharge she has been unable to eat solid food. She has been sticking with her soft diet and drinking plenty of liquids. She has been having ongoing issues with diarrhea over the past month. She was initially having a few soft- loose BM's daily. Over the past week and a half she has been having up to 10, loose-watery BM's. She denies any blood or melena in her stool at anytime and denies any recent nausea, vomiting, or abdominal pain. She has been using Imodium over the past week without improvement of her symptoms. She denies recent fever, chills, chest pain, cough, dysuria, hematuria, dysuria, LE swelling, and recent trauma. She states that she has a long hx of anemia but is unable to tolerate oral iron as it causes too much GI upset. She typically tries to eat foods rich in iron to supplement. She has been unable to consistently take her oral medications over the past few weeks due to them getting stuck while swallowing. Her son is getting engaged on Thursday and she states that she cannot miss it; unfortunately it is in [place] and she is diving up. Their home does have well water but she states that she only drinks bottled water. Please refer to Dr. Jacob's attestation for any changes to the treatment plan Allergies Allergy/AdvReac Type Severity Reaction Status Date / Time Iodinated Contrast Media Allergy Intermediate HIVES, Verified 03/24/23 10:35 RASH, WHEEZING Penicillins Allergy Mild RASH(?) Verified 03/24/23 10:35 Home Medications Medication Instructions Recorded Confirmed Type cetirizine 10 mg capsule (Zyrtec) 10 mg PO DAILY PRN Allergy Symptoms 07/11/19 04/01/23 History phentermine 37.5 mg tablet 37.5 mg PO QAM 07/11/19 04/01/23 History infliximab 100 mg intravenous See Rx Instructions IV .COMPLEX 08/09/19 04/01/23 History solution (Remicade) hydrochlorothiazide 25 mg tablet 25 mg PO DAILY PRN edema #30 tabs 09/23/19 04/01/23 Rx cholecalciferol (vitamin D3) 125 5,000 units PO QAM 07/24/20 04/01/23 History mcg (5,000 unit) capsule potassium chloride 10 mEq 10 meq PO .COMPLEX PRN when taking 03/12/21 04/01/23 History capsule,extended release hctz ketoconazole 2 % topical cream 1 applic topical BID #15 grams 09/18/21 04/01/23 Rx cyanocobalamin (vitamin B-12) 1,000 mcg subcut .once monthly #1 08/21/22 04/01/23 Rx 1,000 mcg/mL injection solution mL albuterol sulfate 90 mcg/actuation 2 puff inhalation Q4 PRN Shortness 04/01/23 04/01/23 History aerosol inhaler (ProAir HFA) Of Breath Or Wheezing doxycycline hyclate 100 mg tablet 100 mg PO QAM 04/01/23 04/01/23 History Past Med/Surg History Medical History Allergic rhinitis inhaler prn Anxiety disorder Arthralgia of multiple sites Crohn's disease Depression Dermatitis on doxycycline daily Edema occasionally Hepatic cyst unaware Mixed connective tissue disease Obesity Osteopenia Pancreatic cyst unaware Pulmonary nodules unaware Seasonal allergies Vitamin B12 deficiency Vitamin D deficiency Surgical History History of bowel resection (~1993) [facility] [place] History of breast biopsy benign History of History of colonoscopy History of tonsillectomy History of wisdom tooth extraction Family History Mother Ovarian cancer Leukemia Breast cancer Uterine cancer Hypertension Father Congestive heart failure Stroke Uncle Myocardial infarction Other No family history of adverse response to anesthesia Denies family history of Prostate cancer Diabetes Lung cancer Colorectal cancer Social History Smoking Status: Former smoker Tobacco Type: Cigarettes Second Hand Exposure: No; Do You Dip or Chew Tobacco: No; Hx Alcohol Use: Yes Alcohol type: beer Alcohol Intake Frequency: Monthly or Less Hx Substance Use: No Preferred Language: Thai Communication Ability: Effective Visual Impairment: Limited Hearing Ability: Normal Motor Tune Up Specialist Required: No Beliefs That Will Affect Care: None marital status: Current Living Situation: Spouse Current Living Situation Comment: home with current occupational status: employed How many Children do You have: 1 Other Information That Helps Us Care for You: No Feels Safe at Home: Yes Safety Concerns: Feels Safe At This Time Childhood Exposure to Second-Hand Smoke: Yes caffeine: Yes Dental Care, Regularly: Yes Physical Activity Frequency: Daily Seatbelt Use: always Sunscreen Use: Yes Assistive Devices: Glasses Physical Exam Physical Exam: Physical Exam: General: In no acute distress, stated age, well-nourished, non-toxic appearin g HEENT: Normocephalic, atraumatic, no scleral icterus, pupils around round, symmetrical, and reactive to light, moist mucus membranes, trachea midline, no thyromegaly Chest/Pulm: No respiratory distress, symmetrical chest expansion, clear breath sounds throughout Cardiac: RRR, no murmurs noted Abdomen: Negative for ascites and bruising, hyperactive bowel sounds, soft, non-tender to palpation throughout Musculoskeletal: Symmetrical and without signs of acute trauma, upper and lower extremities with full ROM, no atrophy, spasticity, or flaccidity Extremities: Radial, dorsalis pedis, and posterior tibial pulses are intact and symmetrical, no edema noted in the BL LE's Skin: Warm, dry, no rashes , lesions, or scars noted Neuro: Alert and oriented to person, place, month, year, and president, no focal defects, no tremors noted Psych: No acute distress, calm and cooperative during the exam Results & Data Results & Data Vital Signs (Past 12 Hours) Vital Signs Temp Pulse Pulse Resp BP BP Pulse Ox 04/01/23 16:42 99 H 04/01/23 16:41 100 H 18 152/85 H 99 04/01/23 15:25 36.9 C 111 H 22 151/85 H 100 O2 Del Method 04/01/23 16:42 04/01/23 16:41 Room Air 04/01/23 15:25 Room Air Laboratory Results Abnormal lab results 04/01/23 04/01/23 04/01/23 Range/Units 16:28 16:28 16:28 Hgb 7.0 L (12.0-16.0) g/dl Hct 25.4 L (37.0-47.0) % MCV 59.2 L (80.0-100.0) fL MCH 16.3 L (25.0-34.0) pg MCHC 27.6 L (32.0-36.0) g/dL RDW Coeff of Owen 20.8 H (11.5-14.5) % Plt Count 479 H (130-400) K/uL [place] # (Auto) 0.79 H (0.11-0.59) K/uL Potassium 2.9 L (3.5-5.1) mmol/L Chloride 108 H (98-107) mmol/L BUN/Creatinine Ratio 6.3 L (10-20) Iron 13 L (35-150) mcg/dl Unsaturated IBC 527 H (155-355) mcg/dl Transferrin 390 H (200-360) mg/dl Ferritin 6.9 L (8-388) ng/ml Alkaline Phosphatase 110 H (34-104) U/L Vitamin B12 (180-914) pg/ml Crossmatch See Detail 04/01/23 Range/Units 16:28 Hgb (12.0-16.0) g/dl Hct (37.0-47.0) % MCV (80.0-100.0) fL MCH (25.0-34.0) pg MCHC (32.0-36.0) g/dL RDW Coeff of Owen (11.5-14.5) % Plt Count (130-400) K/uL [place] # (Auto) (0.11-0.59) K/uL Potassium (3.5-5.1) mmol/L Chloride (98-107) mmol/L BUN/Creatinine Ratio (10-20) Iron (35-150) mcg/dl Unsaturated IBC (155-355) mcg/dl Transferrin (200-360) mg/dl Ferritin (8-388) ng/ml Alkaline Phosphatase (34-104) U/L Vitamin B12 > 1500 H (180-914) pg/ml Crossmatch Code Status & VTE Plan Code Status Full code VTE Prophylaxis Plan VTE Prophylaxis will be ordered: Yes Supervising Physician Co-Signing Physician Notes I personally saw and examined the patient. I verified all hunt points and agree with Ye Jenkins PA-C with the following exceptions and/or additions: 57 year old female presents to the ER with abnormal outpatient labs with hemoglobin 6.5. She reports diarrhea but no melena or hematochezia since food bolus 1 month ago. Not yet had follow up EGD from this. She reports history of iron deficiency anemia although struggles to take iron tablets for this. O/E A&Ox3, HS RRR, no murmurs, Chest CTAB, Abdo SNT, BS normal A/P Iron deficiency anemia - Low suspicion of very acute etiology given lack of symptoms, transfuse 1 unit and repeat Hgb. Aim Hgb > 7. Pantoprazole IV boluys and drip. NPO after midnight. Consult GI. She is certainly iron deficienct although MCV very low with actually detectable iron therefore will also get peripheral smear and will need close follow up of this. Hypokalemia - suspect from diarrhea, suspect will need colonoscopy but will await GI consult PG Care Time/CCT Total # of Minutes Spent Total Time Spent with Patient: Total time spent is greater than 50% in coordination of care (as documented) at patient's floor/unit and/or counseling patient: C[place] [address] INT INP/OBS CARE MIN Patient Type Established Medical Decision Making High Complexity Diagnoses Anemia D64.9 Hypokalemia E87.6 Diarrhea R19.7 Crohn's disease K50.90 Difficulty swallowing R13.10
[2023-04-01] MEDS: POTASSIUM CHLORIDE / WTR 10 MEQ/100 ML PLCT IV SCH ×2 (18:12→19:19)
[2023-04-01] MEDS ORDERED: PANTOPRAZOLE BOLUS/DRIP 1 EACH IV STA (18:45)
[2023-04-01 18:52] LABS: Vitamin B12 > 1500 pg/ml (180-914)
[2023-04-01 18:59] LABS: Ferritin 6.9 ng/ml (8-388)
[2023-04-01] MEDS ORDERED: PANTOprazole 80 MG in DEXTROSE 5% 100 ML IV ONE (19:00)
[2023-04-01 19:01] LABS: Magnesium 1.9 mg/dl (1.7-2.4)
[2023-04-01 19:07] LABS: Partial Thromboplastin Ratio 0.9; Partial Thromboplastin Time 25.4 Seconds (21.0-31.0); Prothrombin Time 10.8 Seconds (9.0-12.0)
[2023-04-01 20:12] LABS: Adenovirus F 40/41 PCR Not Detected (NotDetected); Astrovirus PCR Not Detected (NotDetected); Campylobacter PCR Not Detected (NotDetected); Cryptosporidium PCR Not Detected (NotDetected); Cyclospora cayetanensis PCR Not Detected (NotDetected); Entamoeba histolytica PCR Not Detected (NotDetected); Enteroaggregative E.coli(EAEC) Not Detected (NotDetected); Enteropathogenic E.coli (EPEC) Not Detected (NotDetected); Enterotoxigenic E.coli (ETEC) Not Detected (NotDetected); Giardia lamblia PCR Not Detected (NotDetected); Norovirus GI/GII PCR Not Detected (NotDetected); Plesiomonas shigelloides PCR Not Detected (NotDetected); Rotavirus A PCR Not Detected (NotDetected); Salmonella PCR Not Detected (NotDetected); Sapovirus PCR Not Detected (NotDetected); Shiga-like Toxin E.coli (STEC) Not Detected (NotDetected); Shigella/Enteroinvasive E.coli Not Detected (NotDetected); Vibrio cholerae PCR Not Detected (NotDetected); Vibrio species PCR Not Detected (NotDetected); Yersinia enterocolitica PCR Not Detected (NotDetected)
[2023-04-01 20:28] LABS: Reticulocyte % 1.7 % (0.5-2.0); Reticulocytes # 0.07 10^6/uL (0.02-0.10)
[2023-04-01] MEDS ORDERED: ACETAMINOPHEN 325 MG TAB PO PRN (20:50)
[2023-04-01] MEDS ORDERED: ALBUTEROL HFA 8 GM INHALER INH PRN (20:50)
[2023-04-01] MEDS: PANTOprazole 40 MG in DEXTROSE 5% 100 ML IV SCH (21:21)
[2023-04-02] MEDS: PANTOprazole 40 MG in DEXTROSE 5% 100 ML IV SCH ×5 (02:54→22:42)
[2023-04-02] MEDS: CHOLECALCIFEROL 5,000 UNITS 125 MCG TAB PO SCH (07:48)
[2023-04-02 09:01] LABS: Albumin Globulin Ratio 1.3 (0.9-2); Albumin Level 3.4 gm/dl (3.4-5.0); BUN Creatinine Ratio 3.4 (10-20); Bilirubin,Total 0.4 mg/dl (0.2-1.0); Calcium 8.1 mg/dl (8.6-10.3); Creatinine Clr Calc Pharmacy 72.8 ml/min; Est GFR (African American) 82.8 ml/min; Est GFR (Non-African American) 71.4 ml/min; Globulin 2.7 gm/dl (2.5-4.0); Magnesium 1.7 mg/dl (1.7-2.4); Potassium 3.2 mmol/L (3.5-5.1); Total Protein 6.1 gm/dl (6.0-8.3)
[2023-04-02 09:12] LABS: Prothrombin Time 11.3 Seconds (9.0-12.0)
[2023-04-02 09:18] LABS: Basophils # (auto) 0.04 K/uL (0-0.2); Basophils % (auto) 0.5 %; Eosinophils # (auto) 0.14 K/uL (0-0.50); Eosinophils % (auto) 1.8 %; Hematocrit (blood only) 24.6 % (37.0-47.0); Hemoglobin 7.2 g/dl (12.0-16.0); Immature Granulocytes # (auto) 0.02 K/uL (0.01-0.20); Immature Granulocytes % (auto) 0.3 %; Lymphocytes # (auto) 2.43 K/uL (1.2-3.4); Mean Corpuscular Hemoglobin 17.9 pg (25.0-34.0); Mean Corpuscular Hgb Conc 29.3 g/dL (32.0-36.0); Mean Platelet Volume 10.1 fL (9.4-12.4); Monocytes # (auto) 0.75 K/uL (0.11-0.59); Monocytes % (auto) 9.6 %; Neutrophils # (auto) 4.46 K/uL (1.40-6.50); Neutrophils % (auto) 56.8 %; Platelet Count 389 K/uL (130-400); Polychromasia 1+; RDW Coefficient of Variation 22.8 % (11.5-14.5); RDW Standard Deviation 47.8 fL (36.4-46.3); Red Blood Count 4.03 M/uL (4.20-5.40); Schistocytes 1+; White Blood Count 7.84 K/ul (4.8-10.8)
--- NOTE | 2023-04-02 10:03 | Gastrointestinal Consultation ---
Date of Consultation April 02, 2023 Assessment & Plan (1) Diarrhea: Stool PCR negative. -Stool calprotectin already ordered as outpatient, but this will take up to 2 weeks to return -Obtain CRP -Obtain C diff testing -Advised colonoscopy for 04/03/23. See anemia plan for further details. (2) Difficulty swallowing: -Advise Protonix 40 mg IV BID while inpatient -EGD advised for 04/03/23 (3) Anemia: -Clear liquids today -NPO after midnight -EGD & colonoscopy advised for 04/03/23, however it appears patient is wanting to leave the hospital prior to that. If she remains, we will proceed with EGD/colon tomorrow. Supervising Physician Co-Signing Physician Notes Agree with JUNIOR Diaz as above Abd: Soft, NT, ND, +BS Continue current therapy and supportive care EGD and colonoscopy in AM History of Present Illness Reason for Consultation: "Hx Crohn's, diarrhea, hgb of 6.5, dysphagia" Attending Physician: Abraham Hill History of Present Illness Patient is a 57 yo female with a history of Crohn's ileitis s/p resection who contacted the outpatient GI clinic on 04/01/23 with complaints of increased diarrhea over the past month. She estimated 10-15 episodes daily. No rectal bleeding. No abdominal pain. She is on Remicade 10 mg/kg q 6 weeks. Last colonoscopy in March 2021 demonstrated an inflammatory polyp but was otherwise unremarkable and without active IBD. She notes compliance with infusions. She notes that she has also had 1 month of dysphagia for which she was seen in the ED. She was scheduled for an outpatient EGD for further evaluation of this. She is taking Doxycycline daily. In response to her triage call to the outpatient clinic yesterday, she was sent for labs & stool studies. H/H was noted to be 6.5/ 23.6. She was advised to go to the ED for acute evaluation where she was subsequently admitted. Stool PCR ordered as an outpatient has resulted and was negative. Her H/H has only increased to 7.2/24.6 despite 2 units PRBCs. The patient reports she feels "fine" and wants to leave the hospital today because she has things to do. Allergies Allergy/AdvReac Type Severity Reaction Status Date / Time Iodinated Contrast Media Allergy Intermediate HIVES, Verified 03/24/23 10:35 RASH, WHEEZING Penicillins Allergy Mild RASH(?) Verified 03/24/23 10:35 Home Medications Medication Instructions Recorded Confirmed Type cetirizine 10 mg capsule (Zyrtec) 10 mg PO DAILY PRN Allergy Symptoms 07/11/19 04/01/23 History phentermine 37.5 mg tablet 37.5 mg PO QAM 07/11/19 04/01/23 History infliximab 100 mg intravenous See Rx Instructions IV .COMPLEX 08/09/19 04/01/23 History solution (Remicade) hydrochlorothiazide 25 mg tablet 25 mg PO DAILY PRN edema #30 tabs 09/23/19 04/01/23 Rx cholecalciferol (vitamin D3) 125 5,000 units PO QAM 07/24/20 04/01/23 History mcg (5,000 unit) capsule potassium chloride 10 mEq 10 meq PO .COMPLEX PRN when taking 03/12/21 04/01/23 History capsule,extended release hctz ketoconazole 2 % topical cream 1 applic topical BID #15 grams 09/18/21 04/01/23 Rx cyanocobalamin (vitamin B-12) 1,000 mcg subcut .once monthly #1 08/21/22 04/01/23 Rx 1,000 mcg/mL injection solution mL albuterol sulfate 90 mcg/actuation 2 puff inhalation Q4 PRN Shortness 04/01/23 04/01/23 History aerosol inhaler (ProAir HFA) Of Breath Or Wheezing doxycycline hyclate 100 mg tablet 100 mg PO QAM 04/01/23 04/01/23 History Patient History Medical History Allergic rhinitis inhaler prn Anxiety disorder Arthralgia of multiple sites Crohn's disease Depression Dermatitis on doxycycline daily Edema occasionally Hepatic cyst unaware Mixed connective tissue disease Obesity Osteopenia Pancreatic cyst unaware Pulmonary nodules unaware Seasonal allergies Vitamin B12 deficiency Vitamin D deficiency Surgical History History of bowel resection (~1993) [facility] [place] History of breast biopsy benign History of History of colonoscopy History of tonsillectomy History of wisdom tooth extraction Family History Mother Ovarian cancer Leukemia Breast cancer Uterine cancer Hypertension Father Congestive heart failure Stroke Uncle Myocardial infarction Other No family history of adverse response to anesthesia Denies family history of Prostate cancer Diabetes Lung cancer Colorectal cancer Social History Smoking Status: Former smoker Tobacco Type: Cigarettes Second Hand Exposure: No; Do You Dip or Chew Tobacco: No; Hx Alcohol Use: Yes Alcohol type: beer Alcohol Intake Frequency: Monthly or Less Hx Substance Use: No Preferred Language: Macanese Communication Ability: Effective Visual Impairment: Limited Hearing Ability: Normal Airline Security Representative Required: No Beliefs That Will Affect Care: None marital status: Current Living Situation: Spouse Current Living Situation Comment: home with current occupational status: employed How many Children do You have: 1 Other Information That Helps Us Care for You: No Feels Safe at Home: Yes Safety Concerns: Feels Safe At This Time Childhood Exposure to Second-Hand Smoke: Yes caffeine: Yes Dental Care, Regularly: Yes Physical Activity Frequency: Daily Seatbelt Use: always Sunscreen Use: Yes Assistive Devices: None Review of Systems Constitutional: no fever and no chills Respiratory: no cough and no dyspnea Cardiovascular: no chest pain Gastrointestinal: + diarrhea/loose stools; no abdominal pain, no blood in stools and no melena Psychiatric: no problem reported Hematologic / Lymphatic: no unexplained weight loss Physical Exam Constitutional: well developed Respiratory: normal respiratory effort Cardiovascular: Rate/Rhythm: regular rate Gastrointestinal (Abdomen): normal bowel sounds, soft, nontender, no hepatosplenomegaly Musculoskeletal: Head/Neck/Chest: normocephalic Psychiatric: Orientation: alert and oriented x 3 Results & Data Vital Signs (Past 12 Hours) Vital Signs Temp Pulse Pulse Resp BP Pulse Ox O2 Del Method 04/02/23 07:36 36.8 C 87 16 98 Room Air 04/02/23 05:12 36.8 C 89 20 131/78 97 Room Air 04/02/23 00:45 92 H 04/01/23 23:59 36.9 C 95 H 20 177/88 H 95 Room Air PG Care Time/CCT Total # of Minutes Spent Total Time Spent with Patient: Total time spent is greater than 50% in coordination of care (as documented) at patient's floor/unit and/or counseling patient: Coding Level of Care Code 69977 IN/OBS CONSULT LVL 4,60M Diagnoses Diarrhea R19.7 Difficulty swallowing R13.10 Anemia D64.9
[2023-04-02 10:33] LABS: C Reactive Protein 0.57 mg/dl (0-0.5)
[2023-04-02] MEDS: LAVAGE SOLUTION 4000ML PO SCH (18:47)
--- NOTE | 2023-04-02 23:06 | Hospitalist Progress Note ---
Date of Service April 02, 2023 Assessment & Plan (1) Anemia: Plan: -Admit to med-tele -Currently stable -Has been having progressive diarrhea over the past month after having a food bolus -Noted to have outpatient Hgb of 6.5 today and sent to the ED for further evalu ation and treatment -Patient denies bloody BM and melena, fecal occult initially negative but nursing staff states "looked more positive" on further review -BUN WNL, iron studies are low, but does not appear to be low enough to explain her MCV in the 50's -ED consented for blood, ordered 2 units PRBC -Will add on reticulocyte count, LDH,peripheral smear, PT/INR, and aptt for further evaluation -Will start Protonix bolus and drip in case she is having an occult GI bleed -GI consult placed, scopes planned in AM -Will monitor post-transfusion CBC then trend q6h following -BL SCD's for DVT PPX, hold chemical PPX in case of possible bleed (2) Hypokalemia: Plan: -Likely a combination of chronically low levels due to poor absorption, unable to take PO potassium due to difficulty swallowing, and recurrent diarrhea -Mag level at 1.9 -No acute ECG changes -Was initially ordered 2 bags of 10 meq IV KCL, will hold PO forms of KCL at this time as she cannot swallow the tabs and the powdered forms will likely cause excessive GI upset -Continue to monitor on tele (3) Diarrhea: Plan: -Cannot rule out infectious etiology at this time, stool studies are in process -Likely at least partially due to restricted diet since her food bolus a month ago -Hold anti-diarrheals until infectious etiology is ruled out -IV fluids as needed, GI consult (4) Crohn's disease: Plan: -Has been stable on q6w Remicade infusions for 20 + years -Follow's with Dr. Coelho -Will hold any CT imaging at this time as she is without abd discomfort -Follow GI recs (5) Difficulty swallowing: Plan: -Will likely need EGD prior to discharge -Will keep on clears until midnight then NPO in case of EGD tomorrow Admission and Anticipated Discharge Date Admission Date: April 01, 2023 Subjective 57 yo female reports no new symptoms. Review of Systems Review of Systems: All systems reviewed & are unremarkable except as noted in HPI & below Physical Exam Physical Exam: General: In no acute distress, stated age, well-nourished, non-toxic appearing HEENT: Normocephalic, atraumatic, no scleral icterus, pupils around round, symmetrical, and reactive to light, moist mucus membranes, trachea midline, no thyromegaly Chest/Pulm: No respiratory distress, symmetrical chest expansion, clear breath sounds throughout Cardiac: RRR, no murmurs noted Abdomen: Negative for ascites and bruising, hyperactive bowel sounds, soft, non-tender to palpation throughout Musculoskeletal: Symmetrical and without signs of acute trauma, upper and lower extremities with full ROM, no atrophy, spasticity, or flaccidity Extremities: Radial, dorsalis pedis, and posterior tibial pulses are intact and symmetrical, no edema noted in the BL LE's Skin: Warm, dry, no rashes , lesions, or scars noted Neuro: Alert and oriented to person, place, month, year, and president, no focal defects, no tremors noted Psych: No acute distress, calm and cooperative during the exam Results & Data Results & Data Vital Signs (Past 12 Hours) Vital Signs Temp Pulse Pulse Resp BP BP Pulse Ox 04/02/23 20:50 04/02/23 19:17 37.3 C 88 18 145/76 H 100 04/02/23 17:00 84 04/02/23 14:46 36.8 C 82 16 144/80 H 99 04/02/23 11:42 36.7 C 87 16 139/85 99 Pulse Ox O2 Del Method O2 Del Method 04/02/23 20:50 100 Room Air 04/02/23 19:17 Room Air 04/02/23 17:00 04/02/23 14:46 Room Air 04/02/23 11:42 Room Air PG Care Time/CCT Total # of Minutes Spent Total Time Spent with Patient: Total time spent is greater than 50% in coordination of care (as documented) at patient's floor/unit and/or counseling patient: Coding Level of Care Code 04956 SUB INP/OBS CARE 2/35MIN Diagnoses Anemia D64.9 Hypokalemia E87.6 Diarrhea R19.7 Crohn's disease K50.90 Difficulty swallowing R13.10
[2023-04-03] MEDS: LAVAGE SOLUTION 4000ML PO SCH (03:04)
[2023-04-03] MEDS: PANTOprazole 40 MG in DEXTROSE 5% 100 ML IV SCH ×2 (04:16→12:44)
[2023-04-03 07:42] LABS: Basophils # (auto) 0.03 K/uL (0-0.2); Basophils % (auto) 0.4 %; Eosinophils # (auto) 0.11 K/uL (0-0.50); Eosinophils % (auto) 1.5 %; Hemoglobin 7.5 g/dl (12.0-16.0); Immature Granulocytes # (auto) 0.02 K/uL (0.01-0.20); Immature Granulocytes % (auto) 0.3 %; Lymphocytes # (auto) 2.36 K/uL (1.2-3.4); Lymphocytes % (auto) 32.3 %; Mean Corpuscular Hemoglobin 18.1 pg (25.0-34.0); Mean Corpuscular Volume 60.4 fL (80.0-100.0); Monocytes # (auto) 0.91 K/uL (0.11-0.59); Monocytes % (auto) 12.4 %; Neutrophils # (auto) 3.88 K/uL (1.40-6.50); Neutrophils % (auto) 53.1 %; RDW Standard Deviation 46.4 fL (36.4-46.3); Red Blood Count 4.14 M/uL (4.20-5.40); White Blood Count 7.31 K/ul (4.8-10.8)
[2023-04-03 07:55] LABS: Mean Platelet Volume 10.1 fL (9.4-12.4); Platelet Count 396 K/uL (130-400)
[2023-04-03 07:59] LABS: Albumin Globulin Ratio 1.2 (0.9-2); Albumin Level 3.5 gm/dl (3.4-5.0); BUN Creatinine Ratio 3.4 (10-20); Bilirubin,Total 0.3 mg/dl (0.2-1.0); Calcium 8.4 mg/dl (8.6-10.3); Creatinine Clr Calc Pharmacy 74.6 ml/min; Est GFR (African American) 85.1 ml/min; Est GFR (Non-African American) 73.4 ml/min; Magnesium 1.7 mg/dl (1.7-2.4); Potassium 3.1 mmol/L (3.5-5.1); Total Protein 6.5 gm/dl (6.0-8.3)
[2023-04-03 08:14] LABS: Anisocytosis Present; Hypochromasia Present; Microcytosis Present; Polychromasia 2+
--- NOTE | 2023-04-03 09:09 | History & Physical Bridge Note ---
Date of Service April 03, 2023 History & Physical Bridge Note I have examined the patient, reviewed the History & Physical and in the interval since the performance of the History & Physical I have noted the following changes of clinical significance: no changes noted. She notes she tolerated her prep well. She notes clear liquid stools. H/H today is 7.5/25.0. Keep NPO & proceed with EGD & colonoscopy today. Supervising Physician Co-Signing Physician Notes Agree with JUNIOR Diaz as above Abd: Soft, NT, ND, +BS Proceed with EGD and colonoscopy now
--- NOTE | 2023-04-03 09:21 | Anesthesiology Consultation ---
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 Meliton Champion Case, DO Height/Weight Height: 5 ft 6 in Weight: 78.7 kg Allergies Allergy/AdvReac Type Severity Reaction Status Date / Time Iodinated Contrast Media Allergy Intermediate HIVES, Verified 03/24/23 10:35 RASH, WHEEZING Penicillins Allergy Mild RASH(?) Verified 03/24/23 10:35 Medications Home Medications Medication Instructions Recorded Confirmed Last Taken cetirizine 10 mg capsule (Zyrtec) 10 mg PO DAILY PRN Allergy Symptoms 07/11/19 04/01/23 Unknown phentermine 37.5 mg tablet 37.5 mg PO QAM 07/11/19 04/01/23 03/13/21 infliximab 100 mg intravenous See Rx Instructions IV .COMPLEX 08/09/19 04/01/23 02/08/21 solution (Remicade) hydrochlorothiazide 25 mg tablet 25 mg PO DAILY PRN edema #30 tabs 09/23/19 04/01/23 03/10/21 cholecalciferol (vitamin D3) 125 5,000 units PO QAM 07/24/20 04/01/23 03/13/21 mcg (5,000 unit) capsule potassium chloride 10 mEq 10 meq PO .COMPLEX PRN when taking 03/12/21 04/01/23 03/10/21 capsule,extended release hctz ketoconazole 2 % topical cream 1 applic topical BID #15 grams 09/18/21 04/01/23 Unknown cyanocobalamin (vitamin B-12) 1,000 mcg subcut .once monthly #1 08/21/22 04/01/23 Unknown 1,000 mcg/mL injection solution mL albuterol sulfate 90 mcg/actuation 2 puff inhalation Q4 PRN Shortness 04/01/23 04/01/23 Unknown aerosol inhaler (ProAir HFA) Of Breath Or Wheezing doxycycline hyclate 100 mg tablet 100 mg PO QAM 04/01/23 04/01/23 Unknown Active Medications Generic Name Dose Route Start Last Admin Trade Name Freq PRN Reason Stop Dose Admin Pantoprazole Sodium 40 mg/ 100 mls @ 20 mls/hr 04/01/23 19:18 04/03/23 04:16 Dextrose IV 05/01/23 19:17 8 mg/hr Q5H HAZEL 20 mls/hr Administration 8 MG/HR Vitamin D 5,000 units 04/02/23 09:00 04/02/23 07:48 Cholecalciferol 5,000 Units 125 Mcg Tab PO 05/02/23 08:59 Not Given QAM HAZEL NPO Date Last Intake of Fluids: 04/03/23 Time Last Intake of Fluids: 07:30 Date Last Intake of Solids: 04/01/23 Time Last Intake of Solids: 08:00 Past Medical History Medical History (Updated 04/03/23 @ 09:22 by Westley Berry MD) Allergic rhinitis inhaler prn Anxiety disorder Arthralgia of multiple sites Crohn's disease Depression Dermatitis on doxycycline daily Edema occasionally Encounter for pre-operative examination Hepatic cyst unaware Mixed connective tissue disease Obesity Osteopenia Pancreatic cyst unaware Pulmonary nodules unaware Seasonal allergies Vitamin B12 deficiency Vitamin D deficiency Exercise / Class Metabolic Activity 1 > 8 Run/Swim/Ski/Tennis Past Family History Family History Mother Ovarian cancer Leukemia Breast cancer Uterine cancer Hypertension Father Congestive heart failure Stroke Uncle Myocardial infarction Other No family history of adverse response to anesthesia Denies family history of Prostate cancer Diabetes Lung cancer Colorectal cancer Past Surgical History Surgical History History of bowel resection (~1993) [facility] [place] History of breast biopsy benign History of History of colonoscopy History of tonsillectomy History of wisdom tooth extraction Past Anesthesia History No Hx of Anesthesia Complications and No Family Hx of Anesthesia Complications History of PONV No Hx of PONV and No Hx of Motion Sickness Social History Smoking Status: Former smoker Do You Dip or Chew Tobacco: No Hx Alcohol Use: Yes Alcohol type: beer alcohol intake frequency: a few times a month Hx Substance Use: No substance use type: does not use Physical Exam Vital Signs Last Vital Signs Temp 37.2 C 04/03/23 08:49 Pulse 84 04/03/23 08:49 Resp 16 04/03/23 08:49 BP 120/86 04/03/23 08:49 Pulse Ox 97 04/03/23 08:49 O2 Del Method Room Air 04/03/23 08:49 Constitutional no acute distress ENMT Mouth: + dental restorations; no chipped teeth and no loose teeth Thyromental Distance: > or= 3.5 Finger Breadths Mallampati Class: II Neck normal visual inspection and trachea midline; neck extension not limited Respiratory normal respiratory effort; no respiratory distress Auscultation: lungs clear to auscultation bilaterally; no crackles, no rhonchi and no wheezes Cardiovascular Rate/Rhythm: regular rate and regular rhythm Heart Sounds: no gallop, no murmur and no cardiac rub Musculoskeletal Head/Neck/Chest: full ROM of neck Neurologic moves all extremities and awake Psychiatric Orientation: alert and oriented x 3 Testing Laboratory Results 04/03/23 06:58 04/03/23 06:58 PT 11.3 Seconds (9.0-12.0) 04/02/23 07:47 INR 1.0 (0.9-1.1) 04/02/23 07:47 APTT 25.4 Seconds (21.0-31.0) 04/01/23 16:28 Blood Type O Positive 04/01/23 16:28 Antibody Screen NEGATIVE 04/01/23 16:28
[2023-04-03] MEDS ORDERED: PROPOFOL IV EMULSION 10 MG/ML 20 ML VIAL IV ONE ×2 (10:04→10:51)
[2023-04-03] MEDS ORDERED: LIDOCAINE 2% 2 ML VIAL/AMP(20MG/ML) INFIL ONE ×2 (10:04→10:51)
--- NOTE | 2023-04-03 11:00 | GI REPORT ---
Patient Name: Kathleen Wright Procedure Date: 04/03/2023 10:27 AM Date of : 1965 Admit Type: Inpatient Age: 57 Gender: Female Attending MD: Chucky Coelho DO, Procedure: Upper GI endoscopy Providers: Chucky Coelho DO Referring MD: Abraham Hill MD Indications: Dysphagia Medicines: Monitored Anesthesia Care Complications: No immediate complications. Estimated Blood Loss: Estimated blood loss: none. Procedure: Pre-Anesthesia Assessment: - Prior to the procedure, a History and Physical was performed, and patient medications and allergies were reviewed. The patient's tolerance of previous anesthesia was also reviewed. The risks and benefits of the procedure and the sedation options and risks were discussed with the patient. All questions were answered, and informed consent was obtained. Prior Anticoagulants: The patient has taken no anticoagulant or antiplatelet agents. ASA Grade Assessment: III - A patient with severe systemic disease. After reviewing the risks and benefits, the patient was deemed in satisfactory condition to undergo the procedure. After obtaining informed consent, the endoscope was passed under direct vision. Throughout the procedure, the patient's blood pressure, pulse, and oxygen saturations were monitored continuously. The Endoscope was introduced through the mouth, and advanced to the second part of duodenum. The upper GI endoscopy was accomplished without difficulty. The patient tolerated the procedure well. Findings: Multiple benign-appearing, intrinsic moderate stenoses were found. The narrowest stenosis measured 1.3 cm (inner diameter). The stenoses were traversed. A guidewire was placed and the scope was withdrawn. Dilation was performed with a Savary dilator with mild resistance at 51 Fr. The dilation site was examined following endoscope reinsertion and showed moderate improvement in luminal narrowing. The entire examined stomach was normal. The examined duodenum was normal. Impression: - Benign-appearing esophageal stenoses. Dilated. - Normal stomach. - Normal examined duodenum. - No specimens collected. Recommendation: - Return patient to [facility] for [facility] care. - Advance diet as tolerated. - Use Protonix (pantoprazole) 40 mg PO BID. - Repeat upper endoscopy PRN for retreatment. Chucky Coelho DO 04/03/2023 10:59:50 AM This report has been signed electronically. Note Initiated On: 04/03/2023 10:27 AM Number of Addenda: 0 I attest to the content of the Intraoperative Record and orders documented therein, exceptions below {[id number]}
--- NOTE | 2023-04-03 11:05 | GI REPORT ---
Patient Name: Kathleen Wright Procedure Date: 04/03/2023 10:26 AM Date of : 1965 Admit Type: Inpatient Age: 57 Gender: Female Attending MD: Chucky Coelho DO, Procedure: Colonoscopy Providers: Chucky Coelho DO Referring MD: Abraham Hill M.d. Indications: Disease activity assessment of Crohn's disease of the small bowel Medicines: Monitored Anesthesia Care Complications: No immediate complications. Estimated Blood Loss: Estimated blood loss: none. Procedure: Pre-Anesthesia Assessment: - Prior to the procedure, a History and Physical was performed, and patient medications and allergies were reviewed. The patient's tolerance of previous anesthesia was also reviewed. The risks and benefits of the procedure and the sedation options and risks were discussed with the patient. All questions were answered, and informed consent was obtained. Prior Anticoagulants: The patient has taken no anticoagulant or antiplatelet agents. ASA Grade Assessment: III - A patient with severe systemic disease. After reviewing the risks and benefits, the patient was deemed in satisfactory condition to undergo the procedure. After I obtained informed consent, the scope was passed under direct vision. Throughout the procedure, the patient's blood pressure, pulse, and oxygen saturations were monitored continuously. The Scope was introduced through the anus and advanced to the terminal ileum. The colonoscopy was performed without difficulty. The patient tolerated the procedure well. The quality of the bowel preparation was good. The terminal ileum, ileocecal valve, appendiceal orifice, and rectum were photographed. Findings: The perianal and digital rectal examinations were normal. There was evidence of a prior end-to-side ileo-colonic anastomosis in the ascending colon. This was patent and was characterized by ulceration. The anastomosis was traversed. Impression: - Patent end-to-side ileo-colonic anastomosis, characterized by ulceration. - No specimens collected. Recommendation: - Return patient to [facility] for ongoing care. - Advance diet as tolerated. - Use Entocort EC (budesonide) 9 mg PO one time per day daily for 8 weeks. Chucky Coelho DO 04/03/2023 11:04:25 AM This report has been signed electronically. Note Initiated On: 04/03/2023 10:26 AM Number of Addenda: 0 I attest to the content of the Intraoperative Record and orders documented therein, exceptions below {[id number]}
--- NOTE | 2023-04-03 11:19 | Communication Note ---
Date of Service: April 03, 2023 Patient underwent an EGD that indicated an esophageal stenosis which was dilated. Would advise Protonix 40 mg BID upon discharge. I have sent this Rx to her outpatient pharmacy prior to her discharge from the hospital. Her colonoscopy indicated ulceration at the ileo-colonic anastomosis. I have sent Budesonide 9 mg po daily x 8 weeks to her outpatient pharmacy. Our office will reach out for hospital follow-up. Please do not duplicate this appointment upon hospital discharge.
[2023-04-03] MEDS ORDERED: BUDESONIDE EC 3 MG CAP PO SCH (11:30)
--- NOTE | 2023-04-03 12:56 | Anesthesiology Progress Note ---
Date of Service April 03, 2023 Anesthesia Post Procedure Vital Signs Vital Signs: Temp Pulse Pulse Resp BP BP Pulse Ox 04/03/23 11:33 82 16 140/87 100 04/03/23 11:18 84 16 129/97 97 04/03/23 11:03 89 16 148/79 H 99 04/03/23 08:49 37.2 C 84 16 120/86 97 04/03/23 07:31 36.8 C 98 H 16 126/71 04/03/23 03:36 36.6 C 90 18 135/80 96 04/02/23 22:27 97 H 04/02/23 23:14 04/02/23 22:05 37.3 C 99 H 18 160/85 H 97 04/02/23 20:50 04/02/23 19:17 37.3 C 88 18 145/76 H 100 04/02/23 17:00 84 04/02/23 14:46 36.8 C 82 16 144/80 H 99 Pulse Ox O2 Del Method O2 Del Method 04/03/23 11:33 Room Air 04/03/23 11:18 Room Air 04/03/23 11:03 Room Air 04/03/23 08:49 Room Air 04/03/23 07:31 Room Air 04/03/23 03:36 Room Air 04/02/23 22:27 04/02/23 23:14 Room Air 04/02/23 22:05 Room Air 04/02/23 20:50 100 Room Air 04/02/23 19:17 Room Air 04/02/23 17:00 04/02/23 14:46 Room Air Transfer of Care Handoff Completed per policy Notes Mental Status: alert / awake / arousable and participated in evaluation Patient Amnestic to Procedure: Yes Nausea / Vomiting: adequately controlled Pain: adequately controlled Airway Patency, RR, SpO2: stable & adequate BP & HR: stable & adequate Hydration State: stable & adequate Anesthetic Complications: no major complications apparent
[2023-04-03] MEDS: POTASSIUM CHLORIDE / WTR 10 MEQ/100 ML PLCT IV SCH ×3 (13:55→16:28)
[2023-04-03] MEDS: CHOLECALCIFEROL 5,000 UNITS 125 MCG TAB PO SCH (13:56)
--- NOTE | 2023-04-03 14:57 | Discharge Summary ---
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 In the ED the patient was initially tachycardic at 111 but vitals were otherwise stable. Labs in the ED were significant for a Hgb of 7.0, Hct of 25, MCV of 59, MCHC of 27, Platelet count of 479, potassium of 2.9, alk phos of 110. Prior to admission the patient was consented for blood and ordered 2 units of PRBC's. At the time of the exam the patient was sitting in bed in no acute distress. She states that she has had Chron's for 40 years, had approximately 3 feet of ileum removed approximately 20 years ago, and has been on q6w Remicade for years without complication. She was in the [facility] ED on 03/04 due to a food bolus. She was given sublingual ativan and nitroglycerine, as-well-as IV glucagon and was discharged home on a soft diet. She was initially early this month but it was not scheduled with Dr. Coelho and had to be rescheduled for mid April. Since her ED discharge she has been unable to eat solid food. She has been sticking with her soft diet and drinking plenty of liquids. She has been having ongoing issues with diarrhea over the past month. She was initially having a few soft- loose BM's daily. Over the past week and a half she has been having up to 10, loose-watery BM's. She denies any blood or melena in her stool at anytime and denies any recent nausea, vomiting, or abdominal pain. She has been using Imodium over the past week without improvement of her symptoms. She denies recent fever, chills, chest pain, cough, dysuria, hematuria, dysuria, LE swelling, and recent trauma. She states that she has a long hx of anemia but is unable to tolerate oral iron as it causes too much GI upset. She typically tries to eat foods rich in iron to supplement. She has been unable to consistently take her oral medications over the past few weeks due to them getting stuck while swallowing. Her son is getting engaged on Thursday and she states that she cannot miss it; unfortunately it is in [place] and she is diving up. Their home does have well water but she states that she only drinks bottled water. Principal Diagnosis acute blood loss anemia Discharge Exam General: In no acute distress, stated age, well-nourished, non-toxic appearing HEENT: Normocephalic, atraumatic, no scleral icterus, pupils around round, symmetrical, and reactive to light, moist mucus membranes, trachea midline, no thyromegaly Chest/Pulm: No respiratory distress, symmetrical chest expansion, clear breath sounds throughout Cardiac: RRR, no murmurs noted Abdomen: Negative for ascites and bruising, hyperactive bowel sounds, soft, non-tender to palpation throughout Musculoskeletal: Symmetrical and without signs of acute trauma, upper and low er extremities with full ROM, no atrophy, spasticity, or flaccidity Extremities: Radial, dorsalis pedis, and posterior tibial pulses are intact and symmetrical, no edema noted in the BL LE's Skin: Warm, dry, no rashes , lesions, or scars noted Neuro: Alert and oriented to person, place, month, year, and president, no f ocal defects, no tremors noted Psych: No acute distress, calm and cooperative during the exam Discharge Data Allergies Allergy/AdvReac Type Severity Reaction Status Date / Time Iodinated Contrast Media Allergy Intermediate HIVES, Verified 03/24/23 10:35 RASH, WHEEZING Penicillins Allergy Mild RASH(?) Verified 03/24/23 10:35 Consultations 04/01/23 17:47 ED Decision to Admit Stat 04/01/23 18:47 Consult Gastroenterology Routine Procedures Performed Operation Date: 04/03/23 16:30 Actual Procedures p EGD Dilatation - Chucky Kuo. Case, DO s Colonoscopy - Chucky Kuo. Case, DO Hospital Course (1) Anemia: -Admit to [facility] -Currently stable -Has been having progressive diarrhea over the past month after having a food bolus -Noted to have outpatient Hgb of 6.5 today and sent to the ED for further evaluation and treatment -Patient denies bloody BM and melena, fecal occult initially negative but nursing staff states "looked more positive" on further review -BUN WNL, iron studies are low, but does not appear to be low enough to explain her MCV in the 50's -ED consented for blood, ordered 2 units PRBC -Will add on reticulocyte count, LDH,peripheral smear, PT/INR, and aptt for further evaluation -Will start Protonix bolus and drip in case she is having an occult GI bleed -GI consult placed, scopes planned in AM -Will monitor post-transfusion CBC then trend q6h following -BL SCD's for DVT PPX, hold chemical PPX in case of possible bleed On 04/03 Patient had a upper and lower GI scope.. Appreciate input from GI. Patient will be discharge on PPI and budesonide. Anemia likley caused from bleeding from the anastomotic ulcer that was noted on the colonoscopy. Patient also found to have esophageal stenosis on upper GI. This was dilated. Bleeding/anemia likely from the ulcer. crohns likely feeding the diarrhea. Patient discharged on 9 mg of budesonide to complete an 8 week course.. (2) Hypokalemia: -Likely a combination of chronically low levels due to poor absorption, unable to take PO potassium due to difficulty swallowing, and recurrent diarrhea -Mag level at 1.9 -No acute ECG changes -relenished (3) Diarrhea: -Cannot rule out infectious etiology at this time, stool studies are in process -Likely at least partially due to restricted diet since her food bolus a month ago -Hold anti-diarrheals until infectious etiology is ruled out -IV fluids as needed, GI consult as above, likely due to crohns (4) Crohn's disease: -Has been stable on q6w Remicade infusions for 20 + years -Follow's with Dr. Coelho -Will hold any CT imaging at this time as she is without abd discomfort -Follow GI recs (5) Difficulty swallowing: -shown from EGD, this was due to esophageal stenosis. Total Time Total Time Spent Total Time Spent (In Minutes): 32 Discharge Plan Discharge Items Patient Disposition: Home - Self-Care Reason For Visit: ANEMIA Discharge Diagnosis: Anemia Activity: Resume your previous activity Non-emergency contact: Primary Care Provider Call non-emergency contact if: you have any medication questions Follow-up/Referrals: Mukul Paula DO [Physician] - Diet: Low Fiber Addtl Attending Provider Instructions: Recommend followup with PCP in 1-2 weeks. Gastroenterology will contact you next week to schedule followup. Pending Studies at Discharge: No Stand-Alone Forms: My [facility], Smoking Cessation Medications and DC Order Prescriptions: New budesonide 9 mg tablet,delayed and ext.release 9 mg PO DAILY 56 Days Qty: 56 0RF Continued Remicade 100 mg recon soln See Rx Instructions IV .COMPLEX Patient Comments: 10 mg/kg IV Q6 Weeks; Rx Instructions: 10 mg/kg IV Q6 Weeks; hydrochlorothiazide 25 mg tablet 25 mg PO DAILY PRN (Reason: edema) Qty: 30 5RF cyanocobalamin (vitamin B-12) 1,000 mcg/mL solution 1,000 mcg subcut .once monthly Qty: 1 12RF pantoprazole 40 mg tablet,delayed release (DR/EC) 40 mg PO BID Qty: 60 2RF phentermine 37.5 mg tablet 37.5 mg PO QAM Rx Instructions: take after breakfast Zyrtec 10 mg capsule 10 mg PO DAILY PRN (Reason: Allergy Symptoms) ketoconazole 2 % cream 1 applic topical BID Qty: 15 0RF Rx Instructions: Apply to areas of corners of mouth twice daily x 5-7 days as directed. cholecalciferol (vitamin D3) 125 mcg (5,000 unit) capsule 5,000 units PO QAM potassium chloride 10 mEq capsule, extended release 10 meq PO .COMPLEX PRN (Reason: when taking hctz) Rx Instructions: 10 mEq PO DAILY ON DAYS TAKING HCTZ; albuterol sulfate [ProAir HFA] 90 mcg/actuation HFA aerosol inhaler 2 puff INH Q4 PRN (Reason: Shortness Of Breath Or Wheezing) doxycycline hyclate 100 mg tablet 100 mg PO QAM Discontinued budesonide 3 mg capsule,delayed,extend.release 3 mg PO DAILY 56 Days Qty: 56 0RF Discharge Orders: Discharge Order (Routine); Ordered 04/03/23 Ordered By: Abraham Hill Admission Data Admit Date/Time: 04/01/23 18:07 Attending Provider: Abraham Hill Admit Provider: Bashir Jacob Primary Care Provider: PCP,NO Other Providers: Bashir Jacob ; Chucky Coelho Other Interventions: Discharge Summary Assessment (RN) Last Done: 04/03/23 16:06 Coding Level of Care Code 93368 INP/OBS DISCH >30 MIN Diagnoses Anemia D64.9 Hypokalemia E87.6 Diarrhea R19.7 Crohn's disease K50.90 Difficulty swallowing R13.10
[2023-04-03] MEDS ORDERED: PANTOprazole 40 MG in SYRINGE 0 ML IV SCH (21:00)
== END 2023-04-03 16:31 | disposition home or self-care (01) | DRG 394 ==
LOC: ED 15:21 → 2N 18:07 → SUATTDRO 18:07 → 2N 20:20

== ENCOUNTER 2025-09-17 16:14 | Inpatient (IN) ==
--- NOTE | 2025-09-17 16:33 | Emergency Department Note ---
Impression & Plan Sepsis, Right middle lobe pneumonia ED Provider Note NAME: ALEJANDRO HOLLOWAY AGE: 60 SEX: F : 1965 ARRIVES VIA: Walk-In INFORMANT: Patient, ED PROVIDER(S): Jabari Downs MD CHIEF COMPLAINT: Fatigability, fevers, chills MEDICAL DECISION MAKING: Patient presents with the above tachycardic and febrile. Sepsis protocols initiated. IV was established and blood work was obtained. Patient was ordered IV fluids as well as empiric IV cefepime. BioFire also obtained. The patient's blood work shows a white count of 31. Patient ordered additional IV fluids to meet 30 cc/kg bolus. Lactate normal. Hemoglobin and platelet count are unremarkable. MRSA swab also obtained. Patient's chest x-ray concerning for developing right middle lobe pneumonia. The patient was feeling mildly improved after treatment. Patient's MRSA screen positive. I did speak with Dr. Hill after updating the patient's and the patient was admitted to the medicine service. Discussion w/ other healthcare providers: None Prior /Outside records reviewed: Reviewed part of the PCP visit from Amy William from June 2025. Patient with sinusitis right ear pain sinus drainage cough and sinus pressure. Patient is seen via telehealth. Patient with a history of pleural effusions immunocompromised history of Crohn's. Differential diagnosis: Dehydration, UTI, pneumonia, metabolic derangment, electrolyte abnormalities, hypovolemia, anemia, cellulitis among others were considered. Diagnostics, as interpreted by me: ECG: Sinus tachycardia, rate of 130, normal intervals, normal axis no ST elevations ST depressions in the lateral leads. Cardiac monitoring: An order was placed for continuous cardiac monitoring. The monitor shows a rate of 130 with tachycardic and regular rhythm. Patient was placed on pulse oximetry Medical decision rules: None Imaging studies: I informally interpreted the patient's chest x-ray with right middle lobe pneumonia with formal report to follow. HPI: Patient presents from home due to concerns for feeling generally unwell with associated fatigability weakness and tiredness. The patient states that the symptoms got progressively worse to where they were more extreme today. The patient is had associated fevers and chills at home. The patient been taking naproxen and Aleve. No Tylenol. She reports a narrowing of the esophagus and it is hard for her to swallow Tylenol. No known sick contacts and recent travel. The patient denies any chest back or abdominal pain. No dysuria or hematuria. The patient denies any cough or fever. Former smoker. Patient does have a known history of Crohn's and is followed with Dr. Coelho. She does get Remicade infusions every 6 weeks and most recently had this done 2 Fridays ago. She denies any concern for tick bites. PAST MEDICAL HISTORY: See Below PAST SURGICAL HISTORY: See Below SOCIAL HISTORY: See Below HOME MEDICATIONS: See Below ALLERGIES: See Below VITALS: See Below PHYSICAL EXAMINATION: GENERAL: Fatigable but nontoxic in appearance and in no apparent distress. Wearing glasses and a mask. EYE EXAM: Normal conjunctiva. PERRL, no anisocoria and EOM's grossly intact w/o pain. OROPHARYNX: Dry mucus membranes, grossly normal dentition. NECK: Trachea midline, no stridor. LUNGS: Clear to auscultation. Normal chest wall mechanics. HEART: Tachycardic and regular, no MRG. ABDOMEN: Abdomen soft, non-tender, no masses, no rebound or guarding. BACK: No CVA TTP. SKIN: No rashes and no bruising. UPPER EXTREMITIES: Upper extremities are grossly normal. LOWER EXTREMITIES: Grossly normal, no edema. NEURO EXAM: Awake and alert, follows commands, no obvious facial asymmetry, normal speech, moves all 4 extremities. Past Med/Surg History Problem List (Updated 09/17/25 @ 21:25 by Jabari Downs MD) Right middle lobe pneumonia (Acute) Sepsis (Acute) Esophageal dysphagia Crohn's ileitis Cervical adenopathy LENI positive Routine gynecological examination Abnormal CT scan, neck Pleural effusion Immunocompromised patient Hemoptysis Abnormal CT scan, chest Productive cough Schatzki's ring of distal esophagus Iron (Fe) deficiency anemia Encounter for pre-operative examination HTN (hypertension) (Acute) Diarrhea (Acute) Anemia (Acute) Hypokalemia Difficulty swallowing Diarrhea Encounter for pre-operative examination Anemia Allergic rhinitis inhaler prn Mixed connective tissue disease Edema occasionally Obesity Vitamin B12 deficiency Anxiety disorder (Acute) Osteopenia (Acute) Neurodermatitis (Acute) Open scalp wound (Acute) Vitamin D deficiency (Chronic) Depression (Chronic) Arthralgia of multiple sites (Chronic) Crohn's disease Medical History Obesity phentermine daily Hyperlipidemia Depression Osteopenia Anxiety Schatzki ring of distal esophagus Hypertension Iron deficiency anemia Crohn's disease History of esophageal dilatation Seasonal allergies Pancreatic cyst unaware Pulmonary nodules unaware Hepatic cyst unaware Surgical History History of esophagogastroduodenoscopy (EGD) History of breast biopsy benign History of colonoscopy History of wisdom tooth extraction History of tonsillectomy History of bowel [facility] (~1993) [facility] [place] History of Family History Mother Ovarian cancer Leukemia Breast cancer Uterine cancer Hypertension Father Congestive heart failure Stroke Uncle Myocardial infarction Other No family history of adverse response to anesthesia Denies family history of Prostate cancer Diabetes Lung cancer Colorectal cancer Social History Smoking Status: Never smoker Tobacco Type: Cigarettes Age Started Using Tobacco: 17; Age Quit Using Tobacco: 51; packs per day: 0.5; Second Hand Exposure: No; Do You Dip or Chew Tobacco: No; Hx Alcohol Use: Yes Alcohol type: wine Alcohol Intake Frequency: Monthly or Less Hx Substance Use: No Preferred Language: Mongolian Communication Ability: Effective Visual Impairment: Limited Hearing Ability: Normal Section Laborer Required: No Beliefs That Will Affect Care: None marital status: Current Living Situation: Spouse and Family Current Living Situation Comment: home with current occupational status: employed How many Children do You have: 1 Feels Safe at Home: Yes Childhood Exposure to Second-Hand Smoke: Yes Diet: regular caffeine: Yes Dental Care, Regularly: Yes Physical Activity Frequency: 1-2 Times per Week Physical Activity Frequency Comment: walking Seatbelt Use: always Sunscreen Use: Yes Assistive Devices: Contacts and Glasses Allergies Allergies Allergy/AdvReac Type Severity Reaction Status Date / Time Iodinated Contrast Media Allergy Intermediate HIVES, Verified 09/17/25 14:57 RASH, WHEEZING Penicillins Allergy Mild RASH(?) Verified 09/17/25 14:57 Home Meds Home Medications Medication Instructions Recorded Confirmed cetirizine 10 mg capsule (Zyrtec) 10 mg PO DAILY PRN Allergy Symptoms 07/11/19 09/17/25 phentermine 37.5 mg tablet 37.5 mg PO QAM 07/11/19 09/17/25 infliximab 100 mg intravenous See Rx Instructions IV .COMPLEX 08/09/19 09/17/25 solution (Remicade) cholecalciferol (vitamin D3) 125 5,000 units PO QAM 07/24/20 09/17/25 mcg (5,000 unit) capsule potassium chloride 10 mEq 10 meq PO QPM 04/22/23 09/17/25 capsule,extended release Iron Infusions 1 dose IV UD PRN low iron 03/23/25 09/17/25 cyanocobalamin (vitamin B-12) 1,000 mcg subcut MONTHLY 09/17/25 09/17/25 1,000 mcg/mL injection solution pantoprazole 40 mg tablet,delayed 40 mg PO BID 09/17/25 09/17/25 release Previous Rx's Medication Instructions Recorded hydrochlorothiazide 25 mg tablet 25 mg PO DAILY PRN edema #30 tabs 09/23/19 albuterol sulfate 90 mcg/actuation 2 puff inhalation QID PRN 08/11/23 aerosol inhaler shortness of breath or wheezing #8.5 grams Results & Data (ED) Vital Signs Vital Signs - 24 hr 09/17/25 16:19 09/17/25 17:12 Temperature 39.5 C H Temperature Source Temporal Artery Scan Pulse Rate 137 H 121 H Respiratory Rate 22 Blood Pressure 157/79 H Blood Pressure Mean 105 Pulse Oximetry 98 Oxygen Delivery Method Room Air Sepsis Recent Fever Within 48 Hours Yes Sepsis New/Unexplained Change in Mental Status N/A Sepsis Action Taken by Nursing Physician Notified Home Medications Current Medication List: was personally reviewed by me Laboratory Data Attestation: I reviewed the patient's lab results. 09/17/25 16:41 09/17/25 16:41 Lab Results 09/17/25 09/17/25 Range/Units 16:41 16:54 WBC 31.69 H* (4.8-10.8) K/ul RBC 4.68 (4.20-5.40) M/uL Hgb 13.4 (12.0-16.0) g/dL Hct 38.6 (37.0-47.0) % MCV 82.5 (80.0-100.0) fL MCH 28.6 (25.0-34.0) pg MCHC 34.7 (32.0-36.0) g/dL RDW Std Deviation 39.7 (36.4-46.3) fL RDW Coeff of Owen 13.2 (11.5-14.5) % Plt Count 226 (130-400) K/uL MPV 10.3 (9.4-12.4) fL Immature Gran % (Auto) 1.5 % Neut % (Auto) 90.5 % Lymph % (Auto) 3.8 % [place] % (Auto) 3.9 % Eos % (Auto) 0.0 % Baso % (Auto) 0.3 % Neut # (Auto) 28.67 H (1.40-6.50) K/uL Lymph # (Auto) 1.20 (1.20-3.40) K/uL [place] # (Auto) 1.25 H (0.11-0.59) K/uL Eos # (Auto) 0.00 (0.00-0.50) K/uL Baso # (Auto) 0.08 (0.00-0.20) K/uL Immature Gran # (Auto) 0.49 H (0.01-0.20) K/uL Toxic Vacuolation 1+ Sodium 131 L (136-145) mmol/L Potassium 3.2 L (3.5-5.1) mmol/L Chloride 96 L (98-107) mmol/L Carbon Dioxide 25 (21-32) mmol/L Anion Gap 10 (3-11) BUN 17 (6-23) mg/dl Creatinine 1.02 (0.6-1.2) mg/dl Est Cr Clr Drug Dosing 55.0 ml/min eGFR 62.59 BUN/Creatinine Ratio 16.7 (10-20) Glucose 129 H (70-99(Fasting)) mg/dl Lactate 1.3 (0.4-2.0) mmol/L Calcium 8.8 (8.6-10.3) mg/dl Magnesium 1.6 L (1.7-2.4) mg/dl Total Bilirubin 0.8 (0.2-1.0) mg/dl Direct Bilirubin 0.1 (0-0.2) mg/dl AST 15 (13-39) U/L ALT 10 (7-52) U/L Alkaline Phosphatase 104 (34-104) U/L Troponin I High Sens 8.5 (0-14) pg/ml C-Reactive Protein 12.85 H (0-0.5) mg/dl Total Protein 7.3 (6.0-8.3) gm/dl Albumin 3.9 (3.4-5.0) gm/dl Procalcitonin 0.94 H (0-0.5) ng/ml Nasal Screen MRSA (PCR) Positive A (Negative) Adenovirus (PCR) Not Detected (NotDetected) B. pertussis DNA (PCR) Not Detected (NotDetected) B.parapertussis DNA PCR Not Detected (NotDetected) C. pneumoniae DNA (PCR) Not Detected (NotDetected) Coronavirus OC43 (PCR) Not Detected (NotDetected) Coronavirus HKU1 (PCR) Not Detected (NotDetected) Coronavirus 229E (PCR) Not Detected (NotDetected) SARS-CoV-2 (PCR) Not Detected (NotDetected) Coronavirus NL63 (PCR) Not Detected (NotDetected) Human Metapneumovir PCR Not Detected (NotDetected) Influenza Type A (PCR) Not Detected (NotDetected) Influenza Type B (PCR) Not Detected (NotDetected) M. pneumoniae (PCR) Not Detected (NotDetected) Parainfluenza 1 (PCR) Not Detected (NotDetected) Parainfluenza 2 (PCR) Not Detected (NotDetected) Parainfluenza 3 (PCR) Not Detected (NotDetected) Parainfluenza 4 (PCR) Not Detected (NotDetected) RSV (PCR) Not Detected (NotDetected) Entero/Rhino (PCR) Not Detected (NotDetected) Administered Medications Sodium Chloride (Nss) 1,000 mls @ 80 mls/hr IV .[id number] HAZEL Stop: 09/18/25 19:14 Last Admin: 09/17/25 20:35 Dose: 80 mls/hr Documented By: LILLY Discontinued Medications Sodium Chloride (Nss) 1,000 mls @ 999 mls/hr IV .Q1H1M HAZEL Stop: 09/17/25 17:45 Last Infusion: 09/17/25 19:15 Dose: Infused Documented By: Admin: 09/17/25 16:51 Dose: 999 mls/hr Documented By: MEAGAN Acetaminophen (Ofirmev) 1,000 mg in 100 mls @ 400 mls/hr IV NOW STA Stop: 09/17/25 16:48 Last Infusion: 09/17/25 19:14 Dose: Infused Documented By: Admin: 09/17/25 16:51 Dose: 400 mls/hr Documented By: MEAGAN Cefepime HCl (Maxipime 2000mg) 2,000 mg in 20 mls @ 5 mls/min IV NOW STA; Protocol Stop: 09/17/25 16:39 Last Admin: 09/17/25 17:27 Dose: 5 mls/min Documented By: MEAGAN Sodium Chloride (Nss) 1,000 mls @ 999 mls/hr IV .Q1H1M ONE Stop: 09/17/25 18:34 Last Infusion: 09/17/25 19:14 Dose: Infused Documented By: Admin: 09/17/25 17:47 Dose: 999 mls/hr Documented By: MEAGAN Vancomycin HCl 1,250 mg/ (Sodium Chloride) 525 mls @ 200 mls/hr IV NOW ONE Stop: 09/17/25 20:11 Last Admin: 09/17/25 19:03 Dose: 200 mls/hr Documented By: MEAGAN Sodium Chloride (Nss) 500 mls @ 999 mls/hr IV .Q31M ONE Stop: 09/17/25 18:05 Last Infusion: 09/17/25 19:15 Dose: Infused Documented By: Admin: 09/17/25 17:46 Dose: 999 mls/hr Documented By: MEAGAN Imaging Data Radiologist's Impression: Chest X-Ray 09/17/25 16:35 EXAM: X-ray chest one-view portable CLINICAL HISTORY: Sepsis PRIORS: 04/20/2025 CT TECHNIQUE: Portable frontal view chest FINDINGS: Overlying medical wires obscure visualization. Allowing for this, there may be mild opacification under one of the wires in the right upper lobe. The chest is well-expanded. No airspace consolidation, effusion or congestive changes. Heart size is normal. No pneumothorax. Trachea is patent. Osseous structures demonstrate no acute abnormality. No radiopaque foreign body. IMPRESSION: The possibility of right upper lobe mild opacification is noted, partly obscured due to director medical surgical/wires, which could suggest pneumonia given the stated clinical history. ACT 112: Positive. There are findings on this examination that require communication between the performing entity and the patient following Patient Test Result Information Act ([place] ACT 112) guidelines. Electronically signed by Mariam Garcia 09-17-2025 6:12 PM Discharge Plan Visit Data Chief Complaint: Flu Like Symptoms Stated Complaint: FLU ED Provider: Jabari Downs Discharge Problem: Sepsis, Right middle lobe pneumonia Patient Disposition: Admitted As Inpatient Condition: Good Discharge Instructions Interventions: ED Discharge Assessment Last Done: 09/17/25 20:53 Discharge Problem: Sepsis Qualifiers: Sepsis type: sepsis due to unspecified organism Sepsis acute organ dysfunction status: without acute organ dysfunction Qualified Code(s): A41.9 - Sepsis, unspecified organism Right middle lobe pneumonia Qualifiers: Pneumonia type: due to unspecified organism Qualified Code(s): J18.9 - Pneumonia, unspecified organism
[2025-09-17] MEDS: ACETAMINOPHEN 1,000 MG/100 ML VIAL IV STA (16:51)
[2025-09-17] MEDS: SODIUM CHLORIDE 0.9% 1,000 ML IV SCH ×2 (16:51→20:35)
[2025-09-17 17:04] LABS: Hematocrit (blood only) 38.6 % (37.0-47.0); Hemoglobin 13.4 g/dL (12.0-16.0); Mean Corpuscular Hemoglobin 28.6 pg (25.0-34.0); Mean Corpuscular Volume 82.5 fL (80.0-100.0); Platelet Count 226 K/uL (130-400); RDW Standard Deviation 39.7 fL (36.4-46.3); Red Blood Count 4.68 M/uL (4.20-5.40); White Blood Count 31.69 K/ul (4.8-10.8)
[2025-09-17 17:13] LABS: Alanine Aminotransferase 10.0 U/L (7-52); Albumin Level 3.9 gm/dl (3.4-5.0); Alkaline Phosphatase 104.0 U/L (34-104); Anion Gap 10.0 (3-11); Bilirubin,Total 0.8 mg/dl (0.2-1.0); Blood Urea Nitrogen 17.0 mg/dl (6-23); Calcium 8.8 mg/dl (8.6-10.3); Carbon Dioxide 25.0 mmol/L (21-32); Chloride 96.0 mmol/L (98-107); Creatinine Clr Calc Pharmacy 55.0 ml/min; Glucose 129.0 mg/dl (70-99(Fasting)); Magnesium 1.6 mg/dl (1.7-2.4); Potassium 3.2 mmol/L (3.5-5.1); Sodium 131.0 mmol/L (136-145); Total Protein 7.3 gm/dl (6.0-8.3)
[2025-09-17 17:17] LABS: Immature Granulocytes # (auto) 0.49 K/uL (0.01-0.20); Immature Granulocytes % (auto) 1.5 %; Toxic Vacuolation 1+
[2025-09-17] MEDS: CEFEPIME 2000MG 2,000 MG/20 ML SYR IV STA (17:27)
[2025-09-17] MEDS ORDERED: VANCOMYCIN CONSULT ACTIVE PRN (17:34)
[2025-09-17] MEDS: SODIUM CHLORIDE 0.9% 500 ML IV ONE (17:46)
[2025-09-17] MEDS: SODIUM CHLORIDE 0.9% 1,000 ML IV ONE (17:47)
[2025-09-17] MEDS ORDERED: ONDANSETRON INJ 2 MG/ML 2 ML VIAL IV PRN (17:58)
[2025-09-17] MEDS ORDERED: POLYETHYLENE (MIRALAX) 17 GM PACK PO PRN (17:58)
[2025-09-17 18:00] LABS: Chlamydia pneumoniae PCR Not Detected (NotDetected); Coronavirus 229E PCR Not Detected (NotDetected); Coronavirus CoV-2 (COVID19)PCR Not Detected (NotDetected); Coronavirus HKU1 PCR Not Detected (NotDetected); Coronavirus NL63 PCR Not Detected (NotDetected); Coronavirus OC43PCR Not Detected (NotDetected); Human Metapneumovirus PCR Not Detected (NotDetected); Parainfluenza Virus 1 PCR Not Detected (NotDetected); Parainfluenza Virus 2 PCR Not Detected (NotDetected); Parainfluenza Virus 3 PCR Not Detected (NotDetected); Parainfluenza Virus 4 PCR Not Detected (NotDetected); Respiratory Syncytial VirusPCR Not Detected (NotDetected); Rhinovirus/Enterovirus PCR Not Detected (NotDetected)
--- NOTE | 2025-09-17 18:13 | XRay Report ---
EXAM: X-ray chest one-view portable CLINICAL HISTORY: Sepsis PRIORS: 04/20/2025 CT TECHNIQUE: Portable frontal view chest FINDINGS: Overlying medical wires obscure visualization. Allowing for this, there may be mild opacification under one of the wires in the right upper lobe. The chest is well-expanded. No airspace consolidation, effusion or congestive changes. Heart size is normal. No pneumothorax. Trachea is patent. Osseous structures demonstrate no acute abnormality. No radiopaque foreign body. IMPRESSION: The possibility of right upper lobe mild opacification is noted, partly obscured due to medical physiologist/wires, which could suggest pneumonia given the stated clinical history. ACT 112: Positive. There are findings on this examination that require communication between the performing entity and the patient following Patient Test Result Information Act ([place] ACT 112) guidelines. Electronically signed by Mariam Garcia 09-17-2025 6:12 PM
--- NOTE | 2025-09-17 18:30 | History & Physical Report ---
Date of Service September 17, 2025 Assessment & Plan (1) Right middle lobe pneumonia: (2) Sepsis: (3) HTN (hypertension): (4) Crohn's disease: (5) Depression: Plan Sepsis/ Right middle lobe pneumonia katie 60 yo female with esophageal dyshpagia/ and Crohn's Patient admitted fpr sepsis. Admitted to PCU WBC 31k and elevated HR Placed on IVF and cefepime/ vanco will check MRSA. will obtain CT chest Hypertension WIll hold bp meds Crohns disease will hold remicade History of Present Illness Chief Complaint: generalized malaise Primary Care Provider: TANNER Mathur Kathleen is a pleasant 60 yo female with PMH of coronary calcifications, Crohn's disease (on Remicade), anemia, edema, Schatzki's ring, neurodermatitis, mixed connective tissue disease, vitamin D & B12 deficiency, allergic rhinitis, depression, and anxiety who arrives to the ED after feeling ill for the past 10 days. Patient reports having generalized malaise, and feeling weak with low energy. This slowly became worse until yesterday where she began having subjective fevers and chills. She decided to come to the ED and she was found to be tachycardic and with a leukocytosis of 31k. Patient does take Remicade for her Crohn's. Allergies Allergy/AdvReac Type Severity Reaction Status Date / Time Iodinated Contrast Media Allergy Intermediate HIVES, Verified 09/17/25 14:57 RASH, WHEEZING Penicillins Allergy Mild RASH(?) Verified 09/17/25 14:57 Home Medications Medication Instructions Recorded Confirmed Type cetirizine 10 mg capsule (Zyrtec) 10 mg PO DAILY PRN Allergy Symptoms 07/11/19 09/17/25 History phentermine 37.5 mg tablet 37.5 mg PO QAM 07/11/19 09/17/25 History infliximab 100 mg intravenous See Rx Instructions IV .COMPLEX 08/09/19 09/17/25 History solution (Remicade) hydrochlorothiazide 25 mg tablet 25 mg PO DAILY PRN edema #30 tabs 09/23/19 09/17/25 Rx cholecalciferol (vitamin D3) 125 5,000 units PO QAM 07/24/20 09/17/25 History mcg (5,000 unit) capsule potassium chloride 10 mEq 10 meq PO QPM 04/22/23 09/17/25 History capsule,extended release albuterol sulfate 90 mcg/actuation 2 puff inhalation QID PRN 08/11/23 09/17/25 Rx aerosol inhaler shortness of breath or wheezing #8.5 grams Iron Infusions 1 dose IV UD PRN low iron 03/23/25 09/17/25 History cyanocobalamin (vitamin B-12) 1,000 mcg subcut MONTHLY 09/17/25 09/17/25 History 1,000 mcg/mL injection solution pantoprazole 40 mg tablet,delayed 40 mg PO BID 09/17/25 09/17/25 History release Past Med/Surg History Problem List Right middle lobe pneumonia (Acute) Sepsis (Acute) Esophageal dysphagia Crohn's ileitis Cervical adenopathy LENI positive Routine gynecological examination Abnormal CT scan, neck Pleural effusion Immunocompromised patient Hemoptysis Abnormal CT scan, chest Productive cough Schatzki's ring of distal esophagus Iron (Fe) deficiency anemia Encounter for pre-operative examination HTN (hypertension) (Acute) Diarrhea (Acute) Anemia (Acute) Hypokalemia Difficulty swallowing Diarrhea Encounter for pre-operative examination Anemia Allergic rhinitis inhaler prn Mixed connective tissue disease Edema occasionally Obesity Vitamin B12 deficiency Anxiety disorder (Acute) Osteopenia (Acute) Neurodermatitis (Acute) Open scalp wound (Acute) Vitamin D deficiency (Chronic) Depression (Chronic) Arthralgia of multiple sites (Chronic) Crohn's disease Medical History Obesity phentermine daily Hyperlipidemia Depression Osteopenia Anxiety Schatzki ring of distal esophagus Hypertension Iron deficiency anemia Crohn's disease History of esophageal dilatation Seasonal allergies Pancreatic cyst unaware Pulmonary nodules unaware Hepatic cyst unaware Surgical History History of esophagogastroduodenoscopy (EGD) History of breast biopsy benign History of colonoscopy History of wisdom tooth extraction History of tonsillectomy History of bowel [facility] (~1993) [facility] [place] History of Family History Mother Ovarian cancer Leukemia Breast cancer Uterine cancer Hypertension Father Congestive heart failure Stroke Uncle Myocardial infarction Other No family history of adverse response to anesthesia Denies family history of Prostate cancer Diabetes Lung cancer Colorectal cancer Social History Smoking Status: Former smoker Tobacco Type: Cigarettes Age Started Using Tobacco: 17; Age Quit Using Tobacco: 51; packs per day: 0.5; Second Hand Exposure: No; Do You Dip or Chew Tobacco: No; Hx Alcohol Use: No Hx Substance Use: No Preferred Language: Cameroonian Communication Ability: Effective Visual Impairment: Limited Hearing Ability: Normal Tubing Machine Operator Required: No Beliefs That Will Affect Care: None marital status: Current Living Situation: Spouse Current Living Situation Comment: lives at home with current occupational status: employed How many Children do You have: 1 Feels Safe at Home: Yes Safety Concerns: Feels Safe At This Time Childhood Exposure to Second-Hand Smoke: Yes Diet: regular caffeine: Yes Dental Care, Regularly: Yes Physical Activity Frequency: 1-2 Times per Week Physical Activity Frequency Comment: walking Seatbelt Use: always Sunscreen Use: Yes Assistive Devices: Glasses Review of Systems Constitutional: + fever, + chills, + sweats, + fatigue, + malaise and + weakness; no body aches Eyes: no blind spots and no discharge Ear, Nose, Mouth, Throat: no ear pain, no tinnitus and no dizziness Respiratory: no cough and no dyspnea Cardiovascular: no chest pain and no radiating jaw, neck or arm pain Gastrointestinal: no abdominal pain Genitourinary: no dysuria Musculoskeletal: no back pain Integumentary: no acne and no lesions Neurologic: no gait abnormality and no localized weakness Psychiatric: no behavioral changes Endocrine: + fatigue Hematologic / Lymphatic: no easy bleeding Physical Exam Constitutional: WD/WN, vitals as above Neck: trachea midline, no thyromegaly Respiratory: decreased breath sound son the right. Cardiovascular: RRR, no murmur, no edema Gastrointestinal (Abdomen): normal bowel sounds, soft, nontender, no hepatosplenomegaly Skin: no rashes, warm and dry Neurologic: PERRL, EOMI, accommodation nl, no face palsy, no dysarthria Psychiatric: A+Ox3, euthymic affect Lymphatic: no cervical or axillary lymphadenopathy Results & Data Results & Data Vital Signs (Past 12 Hours) Vital Signs Temp Pulse Resp BP Pulse Ox O2 Del Method 09/17/25 17:12 121 H 09/17/25 16:19 39.5 C H 137 H 22 157/79 H 98 Room Air PG Care Time/CCT Total # of Minutes Spent Total Time Spent with Patient: Total time spent is greater than 50% in coordination of care (as documented) at patient's floor/unit and/or counseling patient: Coding Level of Care Code 69881 INT INP/OBS CARE 3/75MIN Diagnoses Right middle lobe pneumonia J18.9 Pneumonia type: due to unspecified organism Sepsis A41.9 Sepsis acute organ dysfunction status: without acute organ dysfunction Sepsis type: sepsis due to unspecified organism HTN (hypertension) I10 Crohn's disease K50.90 Depression F32.9 (1) Right middle lobe pneumonia Pneumonia type: due to unspecified organism Qualified Code(s): J18.9 - Pneumonia, unspecified organism (2) Sepsis Sepsis acute organ dysfunction status: without acute organ dysfunction Sepsis type: sepsis due to unspecified organism Qualified Code(s): A41.9 - Sepsis, unspecified organism
[2025-09-17 18:52] LABS: Appearance Urine Clear (Clear); Bacteria Urine Automated None Seen (None Seen); Cast Urine Automated 0-2 /lpf (0-2); Epithelial Cell Urine Auto 0-2 /hpf (0-2); Glucose Urine UA Negative (Negative); RBC Urine Automated 0-2 /hpf (0-2); WBC Urine Automated 0-5 /hpf (0-5)
[2025-09-17] MEDS: VANCOMYCIN HCL 1,250 MG in SODIUM CHLORIDE 0.9% 500 ML IV ONE (19:03)
[2025-09-17] MEDS: POTASSIUM CHLORIDE 10 MEQ TABCR PO SCH (21:47)
[2025-09-18] MEDS: ACETAMINOPHEN 325 MG TAB PO PRN (00:21)
[2025-09-18] MEDS: VANCOMYCIN 750 MG in SODIUM CHLORIDE 0.9% 250 ML IV SCH (05:33)
[2025-09-18] MEDS: CEFEPIME 2000MG 2,000 MG/20 ML SYR IV SCH ×2 (05:33→14:27)
[2025-09-18 06:29] LABS: Hematocrit (blood only) 31.3 % (37.0-47.0); Hemoglobin 10.7 g/dL (12.0-16.0); Mean Corpuscular Hemoglobin 28.9 pg (25.0-34.0); Mean Corpuscular Volume 84.6 fL (80.0-100.0); Platelet Count 177 K/uL (130-400); RDW Standard Deviation 41.7 fL (36.4-46.3); Red Blood Count 3.70 M/uL (4.20-5.40); White Blood Count 25.68 K/ul (4.8-10.8)
[2025-09-18 07:02] LABS: Acanthocytes 1+; Immature Granulocytes # (auto) 0.26 K/uL (0.01-0.20); Immature Granulocytes % (auto) 1.0 %
[2025-09-18 07:05] LABS: Alanine Aminotransferase 6.0 U/L (7-52); Albumin Globulin Ratio 1.3 (0.9-2); Albumin Level 3.2 gm/dl (3.4-5.0); Alkaline Phosphatase 85.0 U/L (34-104); Anion Gap 7.0 (3-11); Bilirubin,Total 0.5 mg/dl (0.2-1.0); Blood Urea Nitrogen 11.0 mg/dl (6-23); Calcium 7.8 mg/dl (8.6-10.3); Carbon Dioxide 23.0 mmol/L (21-32); Chloride 105.0 mmol/L (98-107); Creatinine Clr Calc Pharmacy 70.1 ml/min; Globulin 2.4 gm/dl (2.5-4.0); Glucose 96.0 mg/dl (70-99(Fasting)); Potassium 2.9 mmol/L (3.5-5.1); Sodium 135.0 mmol/L (136-145); Total Protein 5.6 gm/dl (6.0-8.3)
[2025-09-18] MEDS: CHOLECALCIFEROL 125 MCG (5,000 UNITS) TAB PO SCH (08:55)
[2025-09-18] MEDS: ENOXAPARIN INJ 40 MG/0.4 ML SYR SQ SCH (08:56)
[2025-09-18] MEDS ORDERED: CHOLECALCIFEROL 125 MCG (5,000 UNITS) TAB PO SCH (09:00)
--- NOTE | 2025-09-18 10:25 | CT Scan Report ---
CT OF THE CHEST WITHOUT IV CONTRAST CLINICAL HISTORY: Pneumonia. COMPARISON STUDY: Chest radiograph September 17, 2025. Chest CT April 20, 2025 CT DOSE: 411.02 mGy.cm TECHNIQUE: Axial images of the chest were obtained without IV contrast. Images were reviewed in the axial, sagittal, and coronal planes. IV contrast was not administered for this examination. Automat ed exposure control was utilized for the study. A dose lowering technique was utilized adhering to t he principles of ALARA. FINDINGS: No enlarged axillary, mediastinal or hilar lymph nodes are present. There is no pericardia l effusion. Size of the heart is normal. There is moderate coronary artery calcification. There is no pneumothorax. There is a trace left pleural effusion. Multifocal alveolar opacities are again noted. The largest is a focus of dense consolidation within the right upper lobe on image 89 of 225 which m easures 6.4 x 4.7 cm. Air bronchograms are present. This corresponds to the finding on chest x-ray of September 17, 2025. Moderate subpleural left lower lobe opacity is also likely infectious. There are mild basilar opacities within the right lung. Additional scattered small ill-defined alveolar opaciti es within the lower lobes are also noted. These are in a tree-in-bud distribution. Bilateral lower lo be and right middle lobe volume loss is present. Hepatic cysts are incidentally noted. IMPRESSION: 1. Multifocal alveolar opacities, the largest of which is a 6.4 x 4.7 cm focus of dense consolidation within the right upper lobe which corresponds to the finding on chest radiograph. The findings are c onsistent with multifocal pneumonia. A follow-up chest CT in 2 months to ensure resolution is recomme nded. 2. No thoracic lymphadenopathy. 3. Trace left pleural effusion. ACT 112: Negative or not required by law. Electronically signed by: Chago Cueto M.D. 09/18/2025 10:24 AM
--- NOTE | 2025-09-18 12:40 | Pharmacy Report ---
Pharmacy PK ABX Note - Date of Service September 18, 2025 - Assessment and Plan Assessment 60 year old F with PMH with Crohns w/ infliximab infusions receiving vancomycin/cefepime for treatment of pneumonia. Pertinent microbiologic data includes: Positive MRSA Nasal Swab, Blood cultures pending. Initial WBC 31 k/ul, downtrending. Procal 0.94 --> 2.76. Plan Vancomycin * Loading dose: 1250mg IV x 1 * Maintenance dose: 1000 mg IV every 12 hours * Regimen is predicted to achieve target AUC/JAJA of 400-600 mg/L.hr * Random level ordered for 09/19 @ 1200 Pharmacy will continue to follow and will adjust dose/frequency as necessary. Thank you. Pharmacy has transitioned to AUC monitoring for vancomycin. AUC/AJJA is the preferred PK/PD target and is associated with decreased risk of nephrotoxicity compared to traditional trough targets.
[2025-09-18] MEDS: VANCOMYCIN HCL / NSS 1,000 MG/270 ML BAG IV SCH (14:39)
[2025-09-18] MEDS: POTASSIUM CHLORIDE / WTR 10 MEQ/100 ML PLCT IV SCH (17:06)
[2025-09-18] MEDS: POTASSIUM CHLORIDE CRTAB 20 MEQ TABCR PO STA (17:07)
--- NOTE | 2025-09-18 23:00 | Hospitalist Progress Note ---
Date of Service September 18, 2025 Assessment & Plan (1) Right middle lobe pneumonia: (2) Sepsis: (3) HTN (hypertension): (4) Crohn's disease: (5) Depression: Plan Sepsis/ Right middle lobe pneumonia katie 60 yo female with esophageal dyshpagia/ and Crohn's Patient admitted fpr sepsis. Admitted to PCU WBC 31k and elevated HR on admission, WBC now in the 20s, and HR is alos improving. Obtained ct chest: showed RML pneumonia, curbisded with pulmonary given history of previous issues with RML. No need for bronch at this time, will continue antibiotics, awaiting soutum culture. cefepime/ vanco Hypertension WIll hold bp meds Crohns disease will hold remicade Admission and Anticipated Discharge Date Admission Date: September 17, 2025 Subjective 60 yo female reports feeling a bit better. She is more comfortable, feels less generalized malaise. Physical Exam Constitutional: WD/WN, vitals as above Neck: trachea midline, no thyromegaly Respiratory: normal respiratory effort Auscultation: + rhonchi (right side) Cardiovascular: RRR, no murmur, no edema Gastrointestinal (Abdomen): normal bowel sounds, soft, nontender, no hep atosplenomegaly Skin: no rashes, warm and dry Neurologic: PERRL, EOMI, accommodation nl, no face palsy, no dysarthria Psychiatric: A+Ox3, euthymic affect Lymphatic: no cervical or axillary lymphadenopathy Results & Data Results & Data Vital Signs (Past 12 Hours) Vital Signs Temp Pulse Pulse Resp BP Pulse Ox Pulse Ox 09/18/25 19:26 36.6 C 86 18 146/84 H 97 09/18/25 19:00 97 09/18/25 15:20 37.0 C 99 H 18 157/86 H 97 09/18/25 13:07 96 H 09/18/25 11:02 36.6 C 96 H 18 146/80 H 97 O2 Del Method O2 Del Method 09/18/25 19:26 Room Air 09/18/25 19:00 Room Air 09/18/25 15:20 Room Air 09/18/25 13:07 09/18/25 11:02 Room Air PG Care Time/CCT Total # of Minutes Spent Total Time Spent with Patient: Total time spent is greater than 50% in coordination of care (as documented) at patient's floor/unit and/or counseling patient: Coding Level of Care Code 01300 SUB INP/OBS CARE 350MIN Diagnoses Right middle lobe pneumonia J18.9 Pneumonia type: due to unspecified organism Sepsis A41.9 Sepsis acute organ dysfunction status: without acute organ dysfunction Sepsis type: sepsis due to unspecified organism HTN (hypertension) I10 Crohn's disease K50.90 Depression F32.9 (1) Right middle lobe pneumonia Pneumonia type: due to unspecified organism Qualified Code(s): J18.9 - Pneumonia, unspecified organism (2) Sepsis Sepsis acute organ dysfunction status: without acute organ dysfunction Sepsis type: sepsis due to unspecified organism Qualified Code(s): A41.9 - Sepsis, unspecified organism
[2025-09-19 07:28] LABS: Hematocrit (blood only) 30.2 % (37.0-47.0); Hemoglobin 10.2 g/dL (12.0-16.0); Mean Corpuscular Hemoglobin 28.2 pg (25.0-34.0); Mean Corpuscular Volume 83.4 fL (80.0-100.0); Platelet Count 170 K/uL (130-400); RDW Standard Deviation 41.2 fL (36.4-46.3); Red Blood Count 3.62 M/uL (4.20-5.40); White Blood Count 12.76 K/ul (4.8-10.8)
[2025-09-19 07:48] LABS: Anion Gap 6.0 (3-11); Blood Urea Nitrogen 8.0 mg/dl (6-23); Calcium 8.4 mg/dl (8.6-10.3); Carbon Dioxide 22.0 mmol/L (21-32); Chloride 106.0 mmol/L (98-107); Creatinine Clr Calc Pharmacy 80.3 ml/min; Glucose 102.0 mg/dl (70-99(Fasting)); Potassium 3.6 mmol/L (3.5-5.1); Sodium 134.0 mmol/L (136-145)
[2025-09-19] MEDS ORDERED: VANCOMYCIN LEVEL ONE (11:30)
--- NOTE | 2025-09-19 12:25 | Pharmacy Report ---
Pharmacy PK ABX Note - Date of Service September 19, 2025 - Assessment and Plan Assessment 60 year old F with PMH with Crohns w/ infliximab infusions receiving vancomycin/cefepime for treatment of pneumonia. Pertinent microbiologic data includes: Positive MRSA Nasal Swab, blood cultures show no growth at 24 hours. Initial WBC 31 k/ul, downtrending 25 -> 12.8 . Procal 0.94 --> 2.76. Plan Vancomycin * Current regimen: 1000 mg IV every 12 hours * Random level obtained 09/19/25 resulted as 12.6 mcg/mL. This is predicted to achieve target AUC/JAJA of 400-600 mg/L.hr, but borderline low. * Change to 1250 mg IV every 12 hours * Repeat random level ordered for: 09/21/25 Pharmacy will continue to follow and will adjust dose/frequency as necessary. Thank you. Pharmacy has transitioned to AUC monitoring for vancomycin. AUC/JAJA is the preferred PK/PD target and is associated with decreased risk of nephrotoxicity compared to traditional trough targets.
[2025-09-19] MEDS: VANCOMYCIN HCL 1,250 MG in SODIUM CHLORIDE 0.9% 250 ML IV SCH (12:27)
[2025-09-19] MEDS: SODIUM CHLOR 7% 4 ML NEB NEB SCH (19:24)
[2025-09-19] MEDS: MELATONIN 3 MG TAB PO PRN (21:01)
--- NOTE | 2025-09-19 23:09 | Hospitalist Progress Note ---
Date of Service September 19, 2025 Assessment & Plan (1) Right middle lobe pneumonia: (2) Sepsis: (3) HTN (hypertension): (4) Crohn's disease: (5) Depression: Plan Sepsis/ Right middle lobe pneumonia katie 60 yo female with esophageal dyshpagia/ and Crohn's Patient admitted fpr sepsis. Admitted to PCU WBC 31k and elevated HR on admission, WBC now much improved. and HR now normal. Obtained ct chest: showed RML pneumonia, curbisded with pulmonary given history of previous issues with RML. No need for bronch at this time, will continue antibiotics, awaiting soutum culture. cefepime/ vanco given positive MRSA. Given local resistance to FQ in our population, and recurrence of a consoliadation in that lobe will recommend to continue above place for 5 days, then may transition to an oral form. Hypertension WIll hold bp meds Crohns disease will hold remicade Admission and Anticipated Discharge Date Admission Date: September 17, 2025 Subjective Patient reports breathing much better. Physical Exam Constitutional: WD/WN, vitals as above Neck: trachea midline, no thyromegaly Respiratory: normal respiratory effort Auscultation: + rhonchi (right side) Cardiovascular: RRR, no murmur, no edema Gastrointestinal (Abdomen): normal bowel sounds, soft, nontender, no hepatosplenomegaly Skin: no rashes, warm and dry Neurologic: PERRL, EOMI, accommodation nl, no face palsy, no dysarthria Psychiatric: A+Ox3, euthymic affect Lymphatic: no cervical or axillary lymphadenopathy Results & Data Results & Data Vital Signs (Past 12 Hours) Vital Signs Temp Pulse Pulse Resp BP Pulse Ox O2 Del Method 09/19/25 22:38 37.0 C 88 20 138/80 95 Room Air 09/19/25 19:45 37.0 C 92 H 18 143/83 H 94 Room Air 09/19/25 19:27 96 H 18 96 Room Air 09/19/25 16:16 90 09/19/25 15:38 36.7 C 93 H 18 154/85 H 97 Room Air 09/19/25 11:12 36.6 C 88 18 159/83 H 97 Room Air PG Care Time/CCT Total # of Minutes Spent Total Time Spent with Patient: Total time spent is greater than 50% in coordination of care (as documented) at patient's floor/unit and/or counseling patient: Coding Level of Care Code 09143 SUB INP/OBS CARE 350MIN Diagnoses Right middle lobe pneumonia J18.9 Pneumonia type: due to unspecified organism Sepsis A41.9 Sepsis acute organ dysfunction status: without acute organ dysfunction Sepsis type: sepsis due to unspecified organism HTN (hypertension) I10 Crohn's disease K50.90 Depression F32.9 (1) Right middle lobe pneumonia Pneumonia type: due to unspecified organism Qualified Code(s): J18.9 - Pneumonia, unspecified organism (2) Sepsis Sepsis acute organ dysfunction status: without acute organ dysfunction Sepsis type: sepsis due to unspecified organism Qualified Code(s): A41.9 - Sepsis, unspecified organism
--- NOTE | 2025-09-20 06:12 | Electrocardiogram Report ---
Test Reason : Blood Pressure : */* mmHG Vent. Rate : 130 BPM Atrial Rate : 130 BPM P-R Int : 118 ms QRS Dur : 80 ms QT Int : 304 ms P-R-T Axes : 60 79 88 degrees QTcB Int : 447 ms Sinus tachycardia Possible Left atrial enlargement Nonspecific ST abnormality Abnormal ECG When compared with ECG of 07-Oct-2023 15:40, ST now depressed in Lateral leads Nonspecific T wave abnormality now evident in Lateral leads Confirmed by Rom Go ([id number]) on 09/20/2025 6:12:13 AM Referred By: REFERRED SELF Confirmed By: Rom Go
[2025-09-20 06:34] LABS: Hematocrit (blood only) 31.9 % (37.0-47.0); Hemoglobin 10.7 g/dL (12.0-16.0); Mean Corpuscular Hemoglobin 27.9 pg (25.0-34.0); Mean Corpuscular Volume 83.1 fL (80.0-100.0); Platelet Count 191 K/uL (130-400); RDW Standard Deviation 40.8 fL (36.4-46.3); Red Blood Count 3.84 M/uL (4.20-5.40); White Blood Count 8.06 K/ul (4.8-10.8)
[2025-09-20 06:48] LABS: Anion Gap 7.0 (3-11); Blood Urea Nitrogen 6.0 mg/dl (6-23); Calcium 8.7 mg/dl (8.6-10.3); Carbon Dioxide 26.0 mmol/L (21-32); Chloride 105.0 mmol/L (98-107); Creatinine Clr Calc Pharmacy 76.8 ml/min; Glucose 99.0 mg/dl (70-99(Fasting)); Potassium 3.4 mmol/L (3.5-5.1); Sodium 138.0 mmol/L (136-145)
[2025-09-20 07:53] VITALS: BP 153/84; PULSE 90; RESP 18; TEMP 97.9; O2SAT 94
--- NOTE | 2025-09-20 07:56 | Hospitalist Progress Note ---
Date of Service September 20, 2025 Assessment & Plan Admission and Anticipated Discharge Date Admission Date: September 17, 2025 Results & Data Results & Data Vital Signs (Past 12 Hours) Vital Signs Temp Pulse Pulse Resp BP Pulse Ox O2 Del Method 09/20/25 07:52 36.6 C 90 18 153/84 H 94 Room Air 09/20/25 07:18 94 H 20 98 Room Air 09/20/25 02:47 36.7 C 78 20 118/76 94 Room Air 09/20/25 00:00 91 H 09/19/25 22:38 37.0 C 88 20 138/80 95 Room Air PG Care Time/CCT Total # of Minutes Spent Total Time Spent with Patient: Total time spent is greater than 50% in coordination of care (as documented) at patient's floor/unit and/or counseling patient: Coding
[2025-09-20] MEDS: INFLUENZA VACC TS2025-26(6m+)/PF (IIV3) 0.5mL Syr IM ONE (12:49)
--- NOTE | 2025-09-20 17:54 | Discharge Summary ---
Discharge Summary Date of Service September 20, 2025 Principal Dx & Hospital Course #1 = Principal Diagnosis (1) Multifocal pneumonia: (2) Crohn's disease: (3) Immunocompromised patient: (4) Sepsis: Plan In summary this is a 60-year-old female who presented to the [facility] due to progressive fatigue found to have multifocal community- acquired pneumonia complicated by the patient's immunocompromise status as consequence of their chronic immunosuppressive therapy in the setting of Crohn's disease The patient was initially managed with intravenous antibiotics including vancomycin and cefepime, the broad-spectrum indicated with the patient's immunocompromise state. She did have positive MRSA nares swab however her short score is 1 indicating a relatively low risk for MRSA pneumonia which is corroborated by her degree of illness not being consistent with 1 that would typically be expected with MRSA pneumonia. The patient's blood cultures are without growth at 48 hours providing a high degree of certainty of no bacteremia in her laboratory assessment has significantly improved from her initial presentation. She is ambulating about the room without difficulty and without any kind of oxygen supplementation need she is comfortable with discharge at this time and so will be discharged with the antibiotic regimen detailed below. This regimen was chosen based on the patient's previous sponsor this was previously diagnosed community-acquired pneumonia and lack of therapeutic response to previously treated pneumonias with fluoroquinolone therapies. Continue metronidazole 500 mg p.o. twice daily and cefdinir 300 mg p.o. twice daily for total 14-day course of antibiotic therapy through 09/30 Given the patient's findings on CT imaging we recommend follow-up CT scan in 2 months to ensure resolution and no evidence of underlying previously unseen pathology that would predispose her to developing this pneumonia. Admission HPI Per Admitting Provider Kathleen is a pleasant 60 yo female with PMH of coronary calcifications, Crohn's disease (on Remicade), anemia, edema, Schatzki's ring, neurodermatitis, mixed connective tissue disease, vitamin D & B12 deficiency, allergic rhinitis, depression, and anxiety who arrives to the ED after feeling ill for the past 10 days. Patient reports having generalized malaise, and feeling weak with low energy. This slowly became worse until yesterday where she began having subjective fevers and chills. She decided to come to the ED and she was found to be tachycardic and with a leukocytosis of 31k. Patient does take Remicade for her Crohn's. Discharge Exam General: Adult female in no acute distress Vital Signs: Reviewed HEENT: Moist mucous membrane Pulmonary: Symmetric chest wall excursion without restriction; clear to auscultation bilaterally Cardiovascular: Regular rate and rhythm without murmurs, rubs, or gallops; S1 and S2 normal; no notable lower extremity edema Neurologic: Cranial nerves II through XII grossly intact no discernible focal weakness nor paresthesia Discharge Plan Discharge Items Patient Disposition: Home - Self-Care Reason For Visit: SEPSIS Discharge Diagnosis: Multifocal community acquired pneumonia with sepsis Condition on Discharge: Good Activity: Per Instructions section Non-emergency contact: Primary Care Provider Call non-emergency contact if: you have any medication questions, your symptoms worsen and your temperature is above 101 Follow-up/Referrals: Ruddy Quispe CRNP [Primary Care Provider] - 09/26/25 9:30 am (09/26/25 at 9:30 with Jono HART) Diet: Regular Fluids: 2000ml (8 cups) Addtl Attending Provider Instructions: You were admitted to [facility] for multifocal community- acquired pneumonia associated with sepsis. With intravenous antibiotic intervention and fluid resuscitation your symptoms have improved. You are no longer requiring supplemental oxygen to maintain an appropriate oxygen saturation, and your associated symptoms related to your pneumonia have improved significantly. Your blood cultures are without growth at 48 hours which provides a high likelihood of no systemic infection. In review of your previous outpatient managed community-acquired pneumonia you had little to no therapeutic response to fluoroquinolone antibiotics and required a course of Keflex and Flagyl for resolution. Based on your risk factors for gastrointestinal related source of this infection given your comorbid health conditions, it is reasonable to pursue a medication regimen that would include anaerobic coverage, therefore we will pursue a similar course to this previous for total of 14 days. Thank you for choosing [facility] as your healthcare provider. Pending Studies at Discharge: No Stand-Alone Forms: My [facility], Work/School Release Medications and DC Order Prescriptions: New cefdinir 300 mg capsule 300 mg PO Q12H 11 Days Qty: 22 0RF metronidazole 500 mg tablet 500 mg PO BID 11 Days Qty: 22 0RF Continued Remicade 100 mg recon soln See Rx Instructions IV .COMPLEX Patient Comments: 10 mg/kg IV Q6 Weeks; Rx Instructions: 10 mg/kg IV Q6 Weeks; hydrochlorothiazide 25 mg tablet 25 mg PO DAILY PRN (Reason: edema) Qty: 30 5RF phentermine 37.5 mg tablet 37.5 mg PO QAM Rx Instructions: take after breakfast Zyrtec 10 mg capsule 10 mg PO DAILY PRN (Reason: Allergy Symptoms) cholecalciferol (vitamin D3) 125 mcg (5,000 unit) capsule 5,000 units PO QAM albuterol sulfate 90 mcg/actuation HFA aerosol inhaler 2 puff inhalation QID PRN (Reason: shortness of breath or wheezing) Qty: 8.5 0RF potassium chloride 10 mEq capsule, extended release 10 meq PO QPM cyanocobalamin (vitamin B-12) 1,000 mcg/mL solution 1,000 mcg subcut MONTHLY Rx Instructions: with needle pantoprazole 40 mg tablet,delayed release (DR/EC) 40 mg PO BID Rx Instructions: TAKE 1 TABLET BY MOUTH TWICE A DAY Discontinued Iron Infusions 1 dose IV UD PRN (Reason: low iron) Discharge Orders: Discharge Order (Routine); Ordered 09/20/25 Ordered By: Jonathan Bella Admission Data Admit Date/Time: 09/17/25 17:58 Attending Provider: Jonathan Bella Admit Provider: Abraham Hill Primary Care Provider: Ruddy Quispe Other Providers: Abraham Hill Other Interventions: Discharge Summary Assessment (RN) Last Done: 09/20/25 13:26 Hospital Stay Data Consultations 09/17/25 17:35 ED Decision to Admit Stat Diagnostic Imagining Performed 09/18/25 08:39 CT chest diagnostic wo con Urgent Pending Results Patient Have Any Pending Studies at Discharge: No Discharge Instructions Given to Patient (Per Discharging Provider) You were admitted to [facility] for multifocal community- acquired pneumonia associated with sepsis. With intravenous antibiotic intervention and fluid resuscitation your symptoms have improved. You are no longer requiring supplemental oxygen to maintain an appropriate oxygen saturation, and your associated symptoms related to your pneumonia have improved significantly. Your blood cultures are without growth at 48 hours which provides a high likelihood of no systemic infection. In review of your previous outpatient managed community-acquired pneumonia you had little to no therapeutic response to fluoroquinolone antibiotics and required a course of Keflex and Flagyl for resolution. Based on your risk factors for gastrointestinal related source of this infection given your comorbid health conditions, it is reasonable to pursue a medication regimen that would include anaerobic coverage, therefore we will pursue a similar course to this previous for total of 14 days. Thank you for choosing [facility] as your healthcare provider. Total Time Total Time Spent Total Time Spent (In Minutes): I personally spent 70 minutes in the coordination of today's discharge including bedside counseling, physical exam, and medication reconciliation Coding Level of Care Code 00532 INP/OBS DISCH >30 MIN Diagnoses Multifocal pneumonia J18.8 Crohn's disease K50.90 Immunocompromised patient D84.9 Sepsis A41.9 Sepsis acute organ dysfunction status: without acute organ dysfunction Sepsis type: sepsis due to unspecified organism
== END 2025-09-20 15:53 | disposition home or self-care (01) | DRG 871 ==
LOC: SUATTDRO → ED 16:14 → 4W 17:58 → SUATTDRO 17:58 → 4W 20:53